=== PATIENT | male | born 1965 | race Caucasian/White ===

== ENCOUNTER 2016-10-25 12:32 | Inpatient (IN) | payer MEDICARE, BC ==
[2016-10-25] MEDS ORDERED: Albuterol/Ipratropium NEB.SOL* Albuterol 2.5 MG/Ipratropium 0.5 MG 3 ML ONE (12:38)
[2016-10-25] MEDS ORDERED: Albuterol 2.5 MG/3 ML NEB.SOL* (0.083%) ONE (12:39)
[2016-10-25] MEDS ORDERED: Albuterol 2.5 MG/3 ML NEB.SOL* (0.083%) INH ONE ×2 (12:40→12:53)
[2016-10-25] MEDS ORDERED: Albuterol/Ipratropium NEB.SOL* Albuterol 2.5 MG/Ipratropium 0.5 MG 3 ML INH ONE (12:40)
[2016-10-25] MEDS ORDERED: Dexamethasone IV* 4 MG/ML 1 ML (4 MG) IV SLOW PU ONE (12:42)
[2016-10-25] MEDS ORDERED: Dexamethasone IV* 4 MG/ML 1 ML (4 MG) ONE (12:44)
[2016-10-25] MEDS ORDERED: LORazepam INJ* 2 MG/ML 1 ML VIAL ONE (12:51)
[2016-10-25] MEDS ORDERED: LORazepam INJ* 2 MG/ML 1 ML VIAL IV PUSH ONE ×2 (12:59→13:14)
[2016-10-25 13:22] LABS: Hematocrit 55 % (42-52); Hemoglobin 18.4 g/dl (14.0-18.0); Mean Corpuscular HGB Conc 33 g/dl (31-36); Mean Corpuscular Hemoglobin 30 pg (27-31); Mean Corpuscular Volume 89 fL (80-94); Mean Platelet Volume 8 um3 (7.4-10.4); Red Cell Distribution Width 16 % (10.5-15); White Blood Count 11.1 10^3/ul (3.5-10.8)
[2016-10-25 13:23] LABS: Comments Flag Yes
[2016-10-25 13:24] LABS: Add Diff/Slide Review? Slide Review Added
--- NOTE | 2016-10-25 13:33 | RAD ---
Indication: Shortness of breath. Single frontal view of the chest performed at 1310 hours was reviewed. Comparison is made with previous exam dated April 27, 2016. No mediastinal shift is noted. Heart is of normal size and configuration. Lung baker appear clear. Poor inspiratory effort is noted. IMPRESSION: NO ACTIVE CARDIOPULMONARY DISEASE IS NOTED.
[2016-10-25 13:43] LABS: Albumin 4.3 g/dL (3.2-5.2); BUN/Creatinine Ratio 13.5 (8-20); Calcium 10.1 mg/dL (8.6-10.3); EGFR African American 67.9 (>60); EGFR Non-African American 52.8 (>60); Globulin 3.8 g/dL (2-4); Total Bilirubin 0.4 mg/dL (0.2-1.0); Total Protein 8.1 g/dL (6.4-8.9)
[2016-10-25 14:19] LABS: Potassium 4.5 mmol/L (3.5-5.0)
--- NOTE | 2016-10-25 14:28 | ED ---
[place], scribed for Сергей Sanchez MD on 10/25/16 at 1300 . Shortness of Breath - HPI Summary HPI Summary: Patient is a 50 y/o male who presents to the ED with SOB since 2 days, worse today. His sister, present at bedside, reports that sx began yesterday with fatigue and weakness and have been worsening in the last 24 hours. She denies fever, but reports a cough productive for yellow sputum. She reports pt was sent here from his doctors office. EMR reveals PMHx is significant for Common Variable Immune Deficiency Syndrome. - History of Current Complaint Chief Complaint: EDShortnessOfBreath Hx Obtained From: Patient, Family/Marine Consultant - Sister., Medical Records Onset/Duration: Gradual Onset, Lasting Hours, Still Present Timing: Constant Current Severity: Moderate Dyspnea At: Rest Aggrevating Factors: Nothing Alleviating Factors: Nothing Associated Signs & Symptoms: Cough (Productive) - Allergy/Home Medications Allergies/Adverse Reactions: Allergies Allergy/AdvReac Type Severity Reaction Status Date / Time Cefuroxime [From Ceftin] Allergy Intermediate Rash Verified 10/25/16 12:37 Nifedipine Allergy Intermediate Swelling Verified 10/25/16 12:37 Penicillins Allergy Intermediate Rash Verified 10/25/16 12:37 Prednisolone Allergy Intermediate Shakes Verified 10/25/16 12:37 Home Medications: Home Medications Albuterol Sulfate [Proair Respiclick] 2 puff INH Q4HR PRN 10/25/16 [History Confirmed 10/25/16] Albuterol/Ipratropium NEB.PAULO* [Duoneb (Albuterol 2.5 MG/Ipratropium 0.5 MG)] 1 neb INH Q2HR PRN 10/25/16 [History Confirmed 10/25/16] Azithromycin [Azithromycin 500 MG TAB] 500 mg PO SEE INSTRUCTIONS 10/25/16 [ History Confirmed 10/25/16] Fluticas/Salmet 230/21 HFA(NF) [Advair HFA 23O/21 (NF)] 2 puff INH BID 10/25/16 [History Confirmed 10/25/16] LevoCETirizine TAB (NF) [Xyzal TAB (NF)] 5 mg PO DAILY 10/25/16 [History Confirmed 10/25/16] Ondansetron ODT TAB* [Zofran 4 MG Odt TAB*] 4 mg PO Q4HR PRN 10/25/16 [History Confirmed 10/25/16] Potassium Chlor TAB* [Klor Con ER TAB*] 10 meq PO DAILY 10/25/16 [History Confirmed 10/25/16] Probiotic Product [Probiotic Daily] 1 cap PO DAILY 10/25/16 [History Confirmed 10/25/16] Tiotropium CAP.INH* [Spiriva CAP.INH*] 2 cap.inh INH DAILY 10/25/16 [History Confirmed 10/25/16] diPHENhydraMINE PO* [Benadryl PO 50 MG CAP*] 50 mg PO Q4HR PRN 10/25/16 [ History Confirmed 10/25/16] predniSONE TAB* [Deltasone TAB*] 10 mg PO DAILY 10/25/16 [History Confirmed ] PMH/Surg Hx/FS Hx/Imm Hx Endocrine/Hematology History: Reports: Hx Systemic Lupus Erythematosus, Other Endocrine/Hematological Disorders - IgG deficiency Denies: Hx Anticoagulant Therapy, Hx Blood Disorders, Hx Blood Transfusions, Hx Bone Marrow Disease, Hx Diabetes, Hx Sickle Cell Disease, Hx Thyroid Disease , Hx Anemia, Hx Unexplained Bleeding Cardiovascular History: Reports: Hx Hypotension, Hx Syncope, Other Cardiovascular Problems/Disorders - low blood pressures Denies: Hx Hypertension, Hx Pacemaker/ICD Respiratory History: Reports: Hx Asthma, Hx Chronic Bronchitis, Hx Chronic Obstructive Pulmonary Disease (COPD), Hx Pneumonia, Hx Sleep Apnea - CPAP at night Denies: Hx Cystic Fibrosis, Hx Lung Cancer, Hx Pleural Effusion, Hx Pulmonary Edema, Hx Pulmonary Embolism, Hx Seasonal Allergies, Other Respiratory Problems/Disorders GI History: Reports: Hx Gastroesophageal Reflux Disease, Hx Gastrointestinal Bleed Denies: Hx Cirrhosis, Hx Crohn's Disease, Hx Diverticulosis, Hx Hiatal Hernia , Hx Irritable Bowel, Hx Jaundice, Hx Obstructive Bowel, Hx Ileostomy, Hx Pyloric Stenosis, Hx Ulcer, Other GI Disorders History: Reports: Other Problems/Disorders - Difficulty passing urine for past 9 months Denies: Hx Renal Disease - Pt is followed by Dr. Zayas- FOR ENLARGED PROSTATE Musculoskeletal History: Reports: Hx Arthritis Denies: Hx Osteoporosis Sensory History: Denies: Hx Hearing Aid Neurological History: Reports: Hx Headaches - right side back of head/neck, Hx Migraine Denies: Hx Dementia, Hx Developmental Delay Psychiatric History: Denies: Hx Anxiety, Hx Attention Deficit Hyperactivity Disorder, Hx Eating Disorder, Hx Depression, Hx Panic Disorder, Hx Post Traumatic Stress Disorder, Hx Inpatient Treatment, Hx Community Mental Health Tx, Hx Schizophrenia, Hx Bipolar Disorder, Hx Suicide Attempt, Hx of Violent Episodes Against Others, Hx Substance Abuse, Other Psychiatric Issues/Disorders - Surgical History Surgery Procedure, Year, and Place: Double hernia surgery, bilateral leg vein stripping x 3. POWER PORT Hx Anesthesia Reactions: No Infectious Disease History: No Infectious Disease History: Reports: Hx of Known/Suspected MRSA Denies: Hx Clostridium Difficile, Hx Hepatitis, Hx Human Immunodeficiency Virus (HIV), Hx Shingles, Hx Tuberculosis, Hx Known/Suspected VRE, Hx Known/ Suspected VRSA, History Other Infectious Disease, Traveled Outside the [place] in Last 30 Days - Family History Known Family History: Positive: Cardiac Disease - CHF - mother. , Other - CVA. - Social History Alcohol Use: None Substance Use Type: Reports: None Smoking Status (MU): Never Smoked Tobacco Have You Smoked in the Last Year: No Review of Systems Positive: Fatigue. Negative: Fever Positive: Shortness Of Breath, Cough - Yellow sputum. Positive: Weakness All Other Systems Reviewed And Are Negative: Yes Physical Exam Triage Information Reviewed: Yes Vital Signs On Initial Exam: Initial Vitals Temp Pulse Resp BP Pulse Ox 96.4 F 122 44 149/118 98 10/25/16 12:37 10/25/16 12:37 10/25/16 12:37 10/25/16 12:37 10/25/16 12:37 Appearance: Positive: Ill-Appearing - in respiratory distress. Skin: Positive: Warm Head/Face: Positive: Normal Head/Face Inspection ENT: Positive: Normal ENT inspection Neck: Positive: Supple Respiratory/Lung Sounds: Positive: Wheezes - bilateral, Unable to speak in full sentences Cardiovascular: Positive: Tachycardia. Negative: Murmur Abdomen Description: Positive: Nontender Musculoskeletal: Positive: Normal, Strength/ROM Intact Neurological: Positive: Normal, Sensory/Motor Intact, Alert, Oriented to Person Place, Time, CN Intact II-III Psychiatric: Positive: Anxious Diagnostics - Vital Signs Vital Signs Temp Pulse Resp BP Pulse Ox 10/25/16 13:00 128/99 10/25/16 12:56 116 34 149/118 100 10/25/16 12:37 96.4 F 122 44 149/118 98 - Laboratory Lab Results: Lab Results 10/25/16 10/25/16 Range/Units 13:02 13:02 WBC 11.1 H (3.5-10.8) 10^3/ul RBC 6.20 H (4.0-5.4) 10^6/ul Hgb 18.4 H (14.0-18.0) g/dl Hct 55 H (42-52) % MCV 89 (80-94) fL MCH 30 (27-31) pg MCHC 33 (31-36) g/dl RDW 16 H (10.5-15) % Plt Count 233 (150-450) 10^3/ul MPV 8 (7.4-10.4) um3 Neut % (Auto) 65.3 (38-83) % Lymph % (Auto) 21.4 L (25-47) % [place] % (Auto) 12.2 H (1-9) % Eos % (Auto) 0.4 (0-6) % Baso % (Auto) 0.7 (0-2) % Absolute Neuts (auto) 7.3 (1.5-7.7) 10^3/ul Absolute Lymphs (auto) 2.4 (1.0-4.8) 10^3/ul Absolute Monos (auto) 1.4 H (0-0.8) 10^3/ul Absolute Eos (auto) 0 (0-0.6) 10^3/ul Absolute Basos (auto) 0.1 (0-0.2) 10^3/ul Absolute Nucleated RBC 0.01 10^3/ul Nucleated RBC % 0.1 Sodium 126 L (133-145) mmol/L Potassium Pending Chloride 95 L (101-111) mmol/L Carbon Dioxide 19 L (22-32) mmol/L Anion Gap Pending BUN 19 (6-24) mg/dL Creatinine 1.41 H (0.67-1.17) mg/dL Est GFR ( Amer) 67.9 (>60) Est GFR (Non-Af Amer) 52.8 (>60) BUN/Creatinine Ratio 13.5 (8-20) Glucose 110 H (70-100) mg/dL Calcium 10.1 (8.6-10.3) mg/dL Total Bilirubin 0.40 (0.2-1.0) mg/dL AST Pending ALT 28 (7-52) U/L Alkaline Phosphatase 52 (34-104) U/L Troponin I 0.00 (<0.04) ng/mL Total Protein 8.1 (6.4-8.9) g/dL Albumin 4.3 (3.2-5.2) g/dL Globulin 3.8 (2-4) g/dL Albumin/Globulin Ratio 1.1 (1-3) Result Diagrams: 10/25/16 13:02 10/25/16 13:02 Lab Statement: Any lab studies that have been ordered have been reviewed, and results considered in the medical decision making process. - Radiology CXR Radiology Interpretation Completed By: Radiologist - IMPRESSION: NO ACTIVE CARDIOPULMONARY DISEASE IS NOTED. - EKG 1238 EKG Interpretation: Sinus tachycardia @ 113 bpm. No STEMI. Course/Dx - Course Course Of Treatment: 50 y/o male presents with SOB since 2 days. Family member denies fever, but reports a cough productive for yellow sputum, fatigue, and weakness. He received Albuterol, Dexamethasone, and Lorazepam. CXR reveals, per radiology, no active cardiopulmonary disease is noted. EKG reveals sinus tachycardia @ 113 bpm and no STEMI. Discussed case with Dr. Taylor and pt will be admitted. - Diagnoses Provider Diagnoses: Status asthmaticus - Physician Notifications Discussed Care of Patient With: Dr. Taylor (hospitalist) @ [id number]. Will see pt in ED. - Critical Care Time Critical Care Time: 30-74 min - 45 minutes critical care time. Discharge - Discharge Plan Condition: Guarded Disposition: ADMITTED TO [facility] The documentation as recorded by the [place] accurately reflects the service I personally performed and the decisions made by Laura block Walter, MD.
[2016-10-25] MEDS ORDERED: diPHENhydraMINE PO* 50 MG PO PRN (14:29)
[2016-10-25] MEDS ORDERED: NS 0.9% 500 ML BAG* 500 ML IV SCH (15:00)
[2016-10-25] MEDS: Albuterol/Ipratropium NEB.SOL* Albuterol 2.5 MG/Ipratropium 0.5 MG 3 ML INH SCH ×2 (15:41→20:13)
[2016-10-25] MEDS: Levofloxacin 750 MG IVPREMIX(* 750 MG/150 ML BAG IVPB SCH (15:45)
[2016-10-25] MEDS: Ondansetron ODT TAB* 4 MG PO PRN (16:11)
[2016-10-25] MEDS: Benzonatate CAP* 100 MG PO PRN ×2 (16:11→22:04)
[2016-10-25] MEDS: Acetaminophen TAB* 325 MG PO PRN (16:42)
[2016-10-25] MEDS: LORazepam INJ* 2 MG/ML 1 ML VIAL IV PUSH PRN (17:50)
[2016-10-25] MEDS: Hydroxychloroquine TAB* 200 MG PO SCH (17:51)
[2016-10-25] MEDS: Clotrimazole TROCHE* 10 MG TROCHE PO SCH ×2 (17:51→22:50)
--- NOTE | 2016-10-25 18:15 | HP ---
HISTORY AND PHYSICAL: DATE OF ADMISSION: 10/25/16 PCP: Dr. Cisneros. CHIEF COMPLAINT: Shortness of breath. HISTORY OF PRESENT ILLNESS: Mr. Adam is a pleasant 50-year-old man with past medical history of severe asthma, on 3 L of oxygen around the clock; IgG deficiency; GERD; DANIKA, on CPAP; lupus; Raynaud's; CKD 3; reported history of DVT , not currently on anticoagulation, who presents to the hospital with progressive shortness of breath over the past few days. The patient states on Sunday, which is 3 days ago, he felt really well, although he felt that he exerted himself too much helping around the house with dinner. Following day, he felt fatigued and more short of breath than usual. Over the following days, this progressed. He became very wheezy, developed a cough that was productive of yellow sputum, also reported headaches, sinus congestion, sneezing, and sore throat. The patient reports that 2-1/2 weeks ago, he had cut back on his azithromycin to twice weekly at Dr. Cam's request; however, he recently went back up to 3 times a week. Over the past 2 days, he has been using his inhalers, nebulizers, and CPAP at home as directed; however, it did not help with the symptoms at all. The patient reports feeling some warmth at times at home; however, he has never had a temperature. He has had some nausea and diarrhea, reports some chest discomfort presently associated with this past few days that feels like a pressure, nonradiating. He denies any abdominal pain , constipation, hematuria, bright red blood per rectum, or dysuria. The patient states he did receive a flu and pneumonia vaccine this past year. The patient has been intubated twice for asthma exacerbations, both of them occurred within a few months 2 years ago. PAST MEDICAL HISTORY: Severe asthma, on chronic oxygen at 3 L; IgG deficiency, on monthly immunoglobulin injections; GERD; history of DVT; lupus; Raynaud's; CKD 3; DANIKA, on CPAP. PAST SURGICAL HISTORY: Hernia repair, vein stripping, port placement. HOME MEDICATIONS: 1. Xanax 0.5 mg by mouth 2 times daily as needed for anxiety. 2. DuoNeb 1 neb inhaler every 2 hours as needed for shortness of breath or wheezing. 3. Aspirin 81 mg by mouth daily. 4. Beclomethasone 2 sprays in both nares daily. 5. Tessalon 200 mg by mouth 3 times daily as needed for cough. 6. Pulmicort 2 mL inhaled 3 times daily. 7. Mycelex Jayme 10 mg p.o. 5 times daily. 8. Epinephrine 0.3 mg injection once as needed for anaphylactic reaction. 9. Florinef 0.1 mg by mouth daily. 10. Benadryl 50 mg by mouth every 4 hours as needed for itching. 11. Advair 500/50 one puff inhaled 2 times daily. 12. Advair 230/21 two puffs inhaled 3 times daily. 13. Plaquenil 200 mg by mouth 2 times daily. 14. Immunoglobulin 37.5 g infusion every 4 weeks. 15. Xopenex 1.25 mg inhaler every 4 hours as needed for shortness of breath or wheezing. 16. Xyzal 5 mg by mouth daily. 17. Singulair 10 mg by mouth daily. 18. Omeprazole 40 mg by mouth daily. 19. Zofran 4 mg by mouth every 4 hours as needed for nausea. 20. MiraLAX 17 g by mouth 2 times a day. 21. Potassium chloride 10 mEq by mouth daily. 22. Albuterol 2 puffs inhaled every 4 hours as needed for shortness of breath or wheezing. 23. Probiotic 1 capsule by mouth daily. 24. Ranitidine 300 mg by mouth at bedtime. 25. Sumatriptan 100 mg by mouth daily as needed for migraines. 26. Flomax 0.4 mg by mouth daily. 27. Spiriva 2 capsules inhaled daily. 28. Torsemide 10 mg Sunday, Sunday, Sunday; 20 mg Sunday, Sunday, , Sunday. 29. Prednisone 10 mg by mouth daily. 30. Azithromycin 500 mg by mouth 3 times weekly. ALLERGIES: CEFUROXIME, NIFEDIPINE, PENICILLIN, PREDNISOLONE. FAMILY HISTORY: Significant for mother with diabetes and stroke. Unknown paternal family history. REVIEW OF SYSTEMS: Twelve-point review of systems is negative except for that is noted in the HPI. PHYSICAL EXAMINATION GENERAL: The patient is a middle-aged, man, lying in bed, in moderate respiratory distress. VITAL SIGNS: On admission, temperature 96.4, heart rate of 122, respiratory rate of 44, O2 saturation 98% on 40 L on 100% oxygen Vapotherm, blood pressure 149/118. HEENT: Pupils equal, round, reactive to light and accommodation. Anicteric sclerae. Moist mucous membranes, some mild posterior oropharyngeal erythema. No cervical adenopathy. LUNGS: Tight, mild air movement, diffuse expiratory wheeze. No rales or rhonchi appreciated. CARDIOVASCULAR: Tachycardic. No murmurs, gallops, or rubs. ABDOMEN: Soft, nontender, nondistended. Bowel sounds positive. EXTREMITIES: No cyanosis, clubbing, or edema. NEURO: The patient is alert and oriented x3. No focal neurological deficits. SKIN: Warm, dry, and well perfused. DIAGNOSTIC STUDIES/LAB DATA: White blood cell count of 11.1, hematocrit of 55 , platelets of 233. Sodium of 126, potassium 4.5, chloride 95, carbon dioxide 19, BUN of 19, creatinine 1.41, glucose of 110, lactic acid of 3.2. LFTs are within normal limits. Troponin is 0.00. EKG personally reviewed shows sinus tachycardia. No ischemic changes. Chest x-ray personally reviewed, poor inspiratory effort, no clear consolidations noted. ASSESSMENT AND PLAN: Severe asthma exacerbation, acute on chronic hypoxic respiratory failure in a 50-year-old man with past medical history of asthma, IgG deficiency, gastroesophageal reflux disease, lupus, Raynaud's, chronic kidney disease 3, and obstructive sleep apnea, on CPAP. 1. Severe asthma exacerbation. The patient received nebs and Decadron in the ED. We will continue skfojc-rrr-hikor DuoNeb along with p.r.n. albuterol. We will switch to Solu-Medrol 60 mg IV q.8. Continue home Spiriva, Singulair, and allergy medications. With the patient's history of immunodeficiency, I will add on a procalcitonin and we will start him on Levaquin for now. We will give the patient 500 cc bolus, seems to be a bit dehydrated based on his labs. I will recheck a lactic acidosis. Hold his home torsemide for now. Continue his home Florinef, which he reports taking for hypotension. No evidence of adrenal crisis at the moment. Symptoms have improved since arriving to the hospital. Currently, weaning down on Vapotherm. We will continue to wean as able. 2. Chest discomfort. Maybe secondary to asthma exacerbation. Initial troponin is 0. We will continue to trend for now. EKG shows sinus tachycardia. No clear ischemic changes. We will monitor the patient on telemetry. 3. Chronic kidney disease. The patient's creatinine seems to be above baseline as noted above. We will give some IV fluids and hold his torsemide for the time being. 4. Lupus/Raynaud's. We will continue the patient's home Plaquenil. 5. IgG deficiency. Antibiotics as above. The patient received his human immunoglobulin on October 19. 6. Anxiety. Likely contributing to his shortness of breath as well, with good response to Ativan in the emergency department. We will continue that for now. Once he has continued improvement, we can switch him back to his home Xanax. 7. DVT prophylaxis. Heparin subcu. 8. Code status. The patient is a full code. TIME SPENT: Total time spent on this admission 45 minutes, with over the half of time spent [id number] with the patient in counseling and coordinating care. CC: Dr. Cisneros; Dr. Cam; Dr. Prem Vaz* [id number]/[facility] #: [id number] [facility] HOSPITALClaudia
[2016-10-25] MEDS: SUMAtriptan TAB* 100 MG PO PRN (19:11)
[2016-10-25] MEDS: Budesonide NEB* 0.5 MG/2 ML NEB.SOLN INH SCH (20:13)
[2016-10-25] MEDS: Polyethylene Glycol 3350* 17 GM PACKET PO SCH (21:20)
[2016-10-25] MEDS: Famotidine TAB* 20 MG PO SCH (22:04)
[2016-10-25] MEDS: Heparin VIAL(*) 5000 UNITS/ML VIAL (FIVE THOUSAND) SUBCUT SCH (22:04)
[2016-10-25] MEDS: methylPREDNISolone SOD SUCC* 125 MG 2 ML VIAL IV SCH (22:05)
[2016-10-25] MEDS: Fluticasone NASAL SPRAY 50MCG* 16 gm SPRAY BTL BOTH NARES SCH (23:55)
[2016-10-26] MEDS: Albuterol/Ipratropium NEB.SOL* Albuterol 2.5 MG/Ipratropium 0.5 MG 3 ML INH SCH ×4 (01:30→21:50)
[2016-10-26] MEDS: Heparin VIAL(*) 5000 UNITS/ML VIAL (FIVE THOUSAND) SUBCUT SCH ×3 (06:02→21:09)
[2016-10-26] MEDS: Clotrimazole TROCHE* 10 MG TROCHE PO SCH ×5 (06:02→21:09)
[2016-10-26] MEDS: methylPREDNISolone SOD SUCC* 125 MG 2 ML VIAL IV SCH ×3 (06:03→21:10)
[2016-10-26] MEDS: Tiotropium CAP.INH* CAP.INH/18 MCG INH SCH (07:52)
[2016-10-26] MEDS: Budesonide NEB* 0.5 MG/2 ML NEB.SOLN INH SCH ×2 (07:52→21:50)
[2016-10-26 08:05] LABS: BUN/Creatinine Ratio 13.7 (8-20); Calcium 9.5 mg/dL (8.6-10.3); EGFR African American 73.9 (>60); EGFR Non-African American 57.5 (>60); Potassium 4.6 mmol/L (3.5-5.0)
[2016-10-26] MEDS: Aspirin EC Low Dose* 81 MG TAB.EC PO SCH (08:06)
[2016-10-26] MEDS: Polyethylene Glycol 3350* 17 GM PACKET PO SCH ×2 (08:06→21:12)
[2016-10-26] MEDS: Omeprazole CAP* 20 MG PO SCH (08:06)
[2016-10-26] MEDS: Potassium Chlor TAB* 10 MEQ TAB.ER PO SCH (08:06)
[2016-10-26] MEDS: Hydroxychloroquine TAB* 200 MG PO SCH ×2 (08:06→16:25)
[2016-10-26] MEDS: Tamsulosin CAP* 0.4 MG PO SCH (08:06)
[2016-10-26] MEDS: Fludrocortisone Acetate TAB* 0.1 MG PO SCH (08:07)
[2016-10-26] MEDS: Acetaminophen TAB* 325 MG PO PRN ×3 (08:26→18:04)
[2016-10-26] MEDS: Benzonatate CAP* 100 MG PO PRN (08:26)
[2016-10-26] MEDS ORDERED: Spiriva Inhaler DEVICE* 1 EACH DEVICE INH ONE (09:00)
[2016-10-26] MEDS: Ondansetron ODT TAB* 4 MG PO PRN ×2 (11:06→16:25)
[2016-10-26] MEDS: Albuterol 2.5 MG/3 ML NEB.SOL* (0.083%) INH PRN (11:08)
[2016-10-26] MEDS: LORazepam INJ* 2 MG/ML 1 ML VIAL IV PUSH PRN (13:00)
[2016-10-26] MEDS ORDERED: Morphine INJ* 2 MG/ML 1 ML SYRINGE IV PRN (13:18)
--- NOTE | 2016-10-26 14:05 | PN ---
Subjective Date of Service: 10/26/16 Interval History: HOSPITALIST PROGRESS NOTE Patient seen and examined at bedside. He feels a little better today, but still dyspneic and with coughing paroxysms. Denies CP now, but had it overnight. Family History: Unchanged from Admission Social History: Unchanged from Admission Past Medical History: Unchanged from Admission Objective Active Medications: Acetaminophen (Tylenol Tab*) 650 mg PO Q4H PRN PRN Reason: PAIN Last Admin: 10/26/16 13:52 Dose: 650 mg Albuterol (Ventolin 2.5 Mg/3 Ml Neb.Ewa*) 2.5 mg INH Q2H PRN PRN Reason: sob/wheezing Last Admin: 10/26/16 11:08 Dose: 2.5 mg Albuterol/Ipratropium (Duoneb (Albuterol 2.5 Mg/Ipratropium 0.5 Mg)) 1 neb INH Q6H BEN Last Admin: 10/26/16 07:52 Dose: 1 neb Aspirin (Aspirin Ec Low Dose*) 81 mg PO DAILY [facility] Last Admin: 10/26/16 08:06 Dose: 81 mg Benzonatate (Tessalon Cap*) 200 mg PO TID PRN PRN Reason: COUGH Last Admin: 10/26/16 08:26 Dose: 200 mg Budesonide (Pulmicort Neb*) 0.5 mg INH BID [facility] Last Admin: 10/26/16 07:52 Dose: 0.5 mg Cetirizine HCl (Zyrtec*) 10 mg PO QPM BEN Clotrimazole (Mycelex Jayme*) 10 mg PO FIVE TIMES DAILY [facility] Last Admin: 10/26/16 13:47 Dose: 10 mg Diphenhydramine HCl (Benadryl Po*) 50 mg PO Q4H PRN PRN Reason: ITCHING Famotidine (Pepcid Tab*) 40 mg PO BEDTIME BEN PRN Reason: Protocol Last Admin: 10/25/16 22:04 Dose: 40 mg Fludrocortisone Acetate (Florinef Tab*) 0.1 mg PO DAILY [facility] Last Admin: 10/26/16 08:07 Dose: 0.1 mg Fluticasone Propionate (Flonase Nasal [place] 50mcg*) 2 spray BOTH NARES BEDTIME [facility] Last Admin: 10/25/16 23:55 Dose: 2 spray Heparin Sodium (Porcine) (Heparin Vial(*)) 5,000 units SUBCUT Q8HR [facility] Last Admin: 10/26/16 13:47 Dose: 5,000 units Hydroxychloroquine Sulfate (Plaquenil Tab*) 200 mg PO BID WITH MEALS [facility] Last Admin: 10/26/16 08:06 Dose: 200 mg Levofloxacin/Dextrose (Levaquin 750 Mg Ivpremix(*)) 750 mg in 150 mls @ 100 mls /hr IVPB Q24H [facility] Last Admin: 10/25/16 15:45 Dose: 100 mls/hr Lorazepam (Ativan Inj*) 0.5 mg IV PUSH Q4H PRN PRN Reason: ANXIETY Last Admin: 10/26/16 13:00 Dose: 0.5 mg Methylprednisolone Sodium Succinate (Solu-Medrol*) 60 mg IV Q8H [facility] Last Admin: 10/26/16 13:46 Dose: 60 mg Montelukast Sodium (Singulair Tab*) 10 mg PO BEDTIME [facility] Morphine Sulfate (Morphine Inj (Syringe)*) 2 mg IV Q4H PRN PRN Reason: PAIN Omeprazole (Prilosec Cap*) 40 mg PO DAILY@0730 [facility] Last Admin: 10/26/16 08:06 Dose: 40 mg Ondansetron HCl (Zofran Odt Tab*) 4 mg PO Q4H PRN PRN Reason: NAUSEA Last Admin: 10/26/16 11:06 Dose: 4 mg Polyethylene Glycol/Electrolytes (Miralax*) 17 gm PO BID [facility] Last Admin: 10/26/16 08:06 Dose: 17 gm Potassium Chloride (Klor Con Er Tab*) 10 meq PO DAILY WITH MEAL [facility] Last Admin: 10/26/16 08:06 Dose: 10 meq Sumatriptan Succinate (Imitrex Tab*) 100 mg PO DAILY PRN PRN Reason: MIGRAINE HEADACHE Last Admin: 10/25/16 19:11 Dose: 100 mg Tamsulosin HCl (Flomax Cap*) 0.4 mg PO DAILY [facility] Last Admin: 10/26/16 08:06 Dose: 0.4 mg Tiotropium [place] (Spiriva Cap.Inh*) 1 cap INH DAILY [facility] Last Admin: 10/26/16 07:52 Dose: 1 cap Vital Signs 10/26/16 10/26/16 12:00 13:00 Temperature 97.2 F Pulse Rate 92 111 Respiratory 16 36 Rate Blood Pressure 126/88 (mmHg) O2 Sat by Pulse 97 97 Oximetry Oxygen Devices in Use Now: High Flow Nasal Cannula - Salter cannula Appearance: Pleasant middle aged male lying in bed in NAD. Eyes: No Scleral Icterus Ears/Nose/Mouth/Throat: Mucous Membranes Moist Neck: Trachea Midline Respiratory: Symmetrical Chest Expansion and Respiratory Effort, - - BS+ bilaterally decreased with no added sounds Cardiovascular: NL Sounds; No Murmurs; No JVD, RRR Abdominal: NL Sounds; No Tenderness; No Distention Extremities: No Edema Neurological: Alert and Oriented x 3, NL Muscle Strength and Tone Lines/Tubes/Other Access: Clean, Dry and Intact Peripheral IV Nutrition: Taking PO's Result Diagrams: 10/25/16 13:02 10/26/16 06:12 Assess/Plan/Problems-Billing Assessment: Mr. Adam is a 50yo M with PMH of severe asthma on home O2, IgG deficiency, GERD, DVT, SLE, CKD, DANIKA on CPAP, who presented to ED with c/o cough and shortness of breath, found to have asthma exacerbation. - Patient Problems (1) Acute hypoxemic respiratory failure Comment: - Acute on chronic. - Continue supplemental O2. (2) Asthma exacerbation Comment: - Secondary to bronchitis. - Continue steroids, Levofloxacin and bronchodilators. - Continue supplemental O2 - titrated down from Vapotherm to Salter, but will continue to monitor in ICU. (3) Chest discomfort Comment: - Secondary to asthma exacerbation. - Serial troponins are negative. (4) CKD (chronic kidney disease) Comment: - Renal function close to baseline. (5) DVT prophylaxis Comment: - SQ heparin. (6) Full code status Status and Disposition: Inpatient.
[2016-10-26] MEDS: Levofloxacin 750 MG IVPREMIX(* 750 MG/150 ML BAG IVPB SCH (14:53)
[2016-10-26] MEDS: Cetirizine* 10 MG TAB PO SCH (18:04)
[2016-10-26] MEDS: Famotidine TAB* 20 MG PO SCH (21:09)
[2016-10-26] MEDS: Montelukast Sodium TAB* 10 MG PO SCH (21:09)
[2016-10-26] MEDS: Fluticasone NASAL SPRAY 50MCG* 16 gm SPRAY BTL BOTH NARES SCH (21:12)
[2016-10-27] MEDS: Albuterol/Ipratropium NEB.SOL* Albuterol 2.5 MG/Ipratropium 0.5 MG 3 ML INH SCH ×4 (03:07→20:51)
[2016-10-27] MEDS: Acetaminophen TAB* 325 MG PO PRN ×3 (04:05→16:56)
[2016-10-27] MEDS: Clotrimazole TROCHE* 10 MG TROCHE PO SCH ×5 (06:39→21:22)
[2016-10-27] MEDS: methylPREDNISolone SOD SUCC* 125 MG 2 ML VIAL IV SCH ×3 (06:39→21:22)
[2016-10-27] MEDS: Heparin VIAL(*) 5000 UNITS/ML VIAL (FIVE THOUSAND) SUBCUT SCH ×3 (06:40→21:22)
[2016-10-27 07:06] LABS: Hematocrit 53 % (42-52); Hemoglobin 17.5 g/dl (14.0-18.0); Mean Corpuscular HGB Conc 33 g/dl (31-36); Mean Corpuscular Hemoglobin 30 pg (27-31); Mean Corpuscular Volume 89 fL (80-94); Mean Platelet Volume 9 um3 (7.4-10.4); Red Blood Count 5.87 10^6/ul (4.0-5.4); Red Cell Distribution Width 16 % (10.5-15); White Blood Count 22.2 10^3/ul (3.5-10.8)
[2016-10-27 07:07] LABS: Add Diff/Slide Review? Slide Review Added; Comments Flag Yes
[2016-10-27 07:21] LABS: BUN/Creatinine Ratio 16.2 (8-20); Calcium 7.9 mg/dL (8.6-10.3); EGFR African American 89.5 (>60); EGFR Non-African American 69.6 (>60); Potassium 4.3 mmol/L (3.5-5.0)
[2016-10-27] MEDS: Budesonide NEB* 0.5 MG/2 ML NEB.SOLN INH SCH ×2 (07:45→20:51)
[2016-10-27] MEDS: Tiotropium CAP.INH* CAP.INH/18 MCG INH SCH (07:46)
[2016-10-27] MEDS: Polyethylene Glycol 3350* 17 GM PACKET PO SCH ×2 (08:18→21:22)
[2016-10-27] MEDS: Aspirin EC Low Dose* 81 MG TAB.EC PO SCH (08:19)
[2016-10-27] MEDS: Omeprazole CAP* 20 MG PO SCH (08:19)
[2016-10-27] MEDS: Tamsulosin CAP* 0.4 MG PO SCH (08:19)
[2016-10-27] MEDS: Fludrocortisone Acetate TAB* 0.1 MG PO SCH (08:19)
[2016-10-27] MEDS: Potassium Chlor TAB* 10 MEQ TAB.ER PO SCH (08:19)
[2016-10-27] MEDS: Hydroxychloroquine TAB* 200 MG PO SCH ×2 (08:20→16:56)
[2016-10-27] MEDS ORDERED: NS 0.9% 1000 ML* 1,000 ML IV ONE ×2 (08:37→14:58)
[2016-10-27] MEDS: NS 0.9% 1000 ML* 1,000 ML IV SCH ×2 (09:55→18:39)
[2016-10-27] MEDS: DOXYcycline IV* 100 MG in NS 0.9% 250 ML* 250 ML IVPB SCH ×2 (09:56→21:21)
--- NOTE | 2016-10-27 13:01 | PN ---
Subjective Date of Service: 10/27/16 Interval History: HOSPITALIST PROGRESS NOTE Patient seen and examined at bedside. He feels better this AM. Less dyspnea and cough, chest is not as tight as yesterday. Family History: Unchanged from Admission Social History: Unchanged from Admission Past Medical History: Unchanged from Admission Objective Active Medications: Acetaminophen (Tylenol Tab*) 650 mg PO Q4H PRN PRN Reason: PAIN Last Admin: 10/27/16 11:46 Dose: 650 mg Albuterol (Ventolin 2.5 Mg/3 Ml Neb.Ewa*) 2.5 mg INH Q2H PRN PRN Reason: sob/wheezing Last Admin: 10/26/16 11:08 Dose: 2.5 mg Albuterol/Ipratropium (Duoneb (Albuterol 2.5 Mg/Ipratropium 0.5 Mg)) 1 neb INH Q6H BEN Last Admin: 10/27/16 07:45 Dose: 1 neb Aspirin (Aspirin Ec Low Dose*) 81 mg PO DAILY [facility] Last Admin: 10/27/16 08:19 Dose: 81 mg Benzonatate (Tessalon Cap*) 200 mg PO TID PRN PRN Reason: COUGH Last Admin: 10/26/16 08:26 Dose: 200 mg Budesonide (Pulmicort Neb*) 0.5 mg INH BID [facility] Last Admin: 10/27/16 07:45 Dose: 0.5 mg Cetirizine HCl (Zyrtec*) 10 mg PO QPM [facility] Last Admin: 10/26/16 18:04 Dose: 10 mg Clotrimazole (Mycelex Jayme*) 10 mg PO FIVE TIMES DAILY [facility] Last Admin: 10/27/16 09:59 Dose: 10 mg Diphenhydramine HCl (Benadryl Po*) 50 mg PO Q4H PRN PRN Reason: ITCHING Famotidine (Pepcid Tab*) 40 mg PO BEDTIME BEN PRN Reason: Protocol Last Admin: 10/26/16 21:09 Dose: 40 mg Fludrocortisone Acetate (Florinef Tab*) 0.1 mg PO DAILY [facility] Last Admin: 10/27/16 08:19 Dose: 0.1 mg Fluticasone Propionate (Flonase Nasal [place] 50mcg*) 2 spray BOTH NARES BEDTIME [facility] Last Admin: 10/26/16 21:12 Dose: 2 spray Heparin Sodium (Porcine) (Heparin Vial(*)) 5,000 units SUBCUT Q8HR [facility] Last Admin: 10/27/16 06:40 Dose: 5,000 units Hydroxychloroquine Sulfate (Plaquenil Tab*) 200 mg PO BID WITH MEALS [facility] Last Admin: 10/27/16 08:20 Dose: 200 mg Levofloxacin/Dextrose (Levaquin 750 Mg Ivpremix(*)) 750 mg in 150 mls @ 100 mls /hr IVPB Q24H [facility] Last Admin: 10/26/16 14:53 Dose: 100 mls/hr Sodium Chloride (Ns 0.9% 1000 Ml*) 1,000 mls @ 125 mls/hr IV PER RATE [facility] Last Admin: 10/27/16 09:55 Dose: 125 mls/hr Doxycycline Hyclate 100 mg/ (Sodium Chloride) 250 mls @ 250 mls/hr IVPB Q12H [facility] Last Admin: 10/27/16 09:56 Dose: 250 mls/hr Lorazepam (Ativan Inj*) 0.5 mg IV PUSH Q4H PRN PRN Reason: ANXIETY Last Admin: 10/26/16 13:00 Dose: 0.5 mg Methylprednisolone Sodium Succinate (Solu-Medrol*) 60 mg IV Q8H [facility] Last Admin: 10/27/16 06:39 Dose: 60 mg Montelukast Sodium (Singulair Tab*) 10 mg PO BEDTIME [facility] Last Admin: 10/26/16 21:09 Dose: 10 mg Morphine Sulfate (Morphine Inj (Syringe)*) 2 mg IV Q4H PRN PRN Reason: PAIN Omeprazole (Prilosec Cap*) 40 mg PO DAILY@0730 [facility] Last Admin: 10/27/16 08:19 Dose: 40 mg Ondansetron HCl (Zofran Odt Tab*) 4 mg PO Q4H PRN PRN Reason: NAUSEA Last Admin: 10/26/16 16:25 Dose: 4 mg Polyethylene Glycol/Electrolytes (Miralax*) 17 gm PO BID [facility] Last Admin: 10/27/16 08:18 Dose: 17 gm Potassium Chloride (Klor Con Er Tab*) 10 meq PO DAILY WITH MEAL [facility] Last Admin: 10/27/16 08:19 Dose: 10 meq Sumatriptan Succinate (Imitrex Tab*) 100 mg PO DAILY PRN PRN Reason: MIGRAINE HEADACHE Last Admin: 10/25/16 19:11 Dose: 100 mg Tamsulosin HCl (Flomax Cap*) 0.4 mg PO DAILY [facility] Last Admin: 10/27/16 08:19 Dose: 0.4 mg Tiotropium [place] (Spiriva Cap.Inh*) 1 cap INH DAILY [facility] Last Admin: 10/27/16 07:46 Dose: 1 cap Vital Signs 10/27/16 10/27/16 10/27/16 07:00 07:51 08:00 Temperature 96.3 F Pulse Rate 104 100 100 Respiratory 22 16 21 Rate Blood Pressure 123/89 (mmHg) O2 Sat by Pulse 95 96 94 Oximetry Oxygen Devices in Use Now: Nasal Cannula - at 5 liters Appearance: Pleasant gentleman lying in bed in NAD. Eyes: No Scleral Icterus Ears/Nose/Mouth/Throat: Mucous Membranes Moist Neck: Trachea Midline Respiratory: Symmetrical Chest Expansion and Respiratory Effort, - - BS+ bilaterally decreased with scattered wheeze Cardiovascular: RRR - Normal S1 and s2 Abdominal: NL Sounds; No Tenderness; No Distention Extremities: No Edema Neurological: Alert and Oriented x 3, NL Muscle Strength and Tone Lines/Tubes/Other Access: Clean, Dry and Intact Peripheral IV Nutrition: Taking PO's Result Diagrams: 10/27/16 06:40 10/27/16 06:40 Assess/Plan/Problems-Billing Assessment: Mr. Adam is a 50yo M with PMH of severe asthma on home O2, IgG deficiency, GERD, DVT, SLE, CKD, DANIKA on CPAP, who presented to ED with c/o cough and shortness of breath, found to have asthma exacerbation. - Patient Problems (1) Sepsis Comment: - Patient meets sepsis criteria with leukocytosis and tachypnea. - Source is bronchitis. - Leukocytosis and LA are trending up - will add Doxycyline and request ID input. (2) Acute hypoxemic respiratory failure Comment: - Acute on chronic. - Continue supplemental O2, but now requiring only 5 liters NC. (3) Asthma exacerbation Comment: - Secondary to bronchitis. - Continue steroids, Levofloxacin and bronchodilators. - Add doxycyline. (4) Lactic acidosis Comment: - Increase IVF and monitor LA. (5) Chest discomfort Comment: - Secondary to asthma exacerbation. - Serial troponins are negative. (6) CKD (chronic kidney disease) Comment: - Renal function at baseline. (7) DVT prophylaxis Comment: - SQ heparin. (8) Full code status Status and Disposition: Inpatient.
[2016-10-27] MEDS: LORazepam INJ* 2 MG/ML 1 ML VIAL IV PUSH PRN (13:53)
[2016-10-27] MEDS: Levofloxacin 750 MG IVPREMIX(* 750 MG/150 ML BAG IVPB SCH (15:01)
[2016-10-27] MEDS: Cetirizine* 10 MG TAB PO SCH (16:56)
--- NOTE | 2016-10-27 21:08 | CONS ---
CONSULTATION REPORT: DATE OF CONSULT: 10/27/16 CONSULTING SERVICE: Infection Disease. REQUESTING PHYSICIAN: Dr. Pemberotn. REASON FOR CONSULT: Asthma exacerbation, leukocytosis, and lactic acidosis. IMPRESSION: 1. Recent viral upper respiratory illness, followed by asthma exacerbation and acute hypoxemic respiratory failure. 2. Leukocytosis, was 11 on admission, 22,000 today, not sure what it was yesterday, that is in the setting of being afebrile and high-dose corticosteroid therapy. I do not think there is evidence of an occult abscess that we should evaluate him for given the fact that he is otherwise improving. He does not have diarrhea to suggest Clostridium difficile infection. His blood cultures are negative today as is his influenza PCR. 3. Lactic acidosis, though he is normotensive, he is mentating, he is producing urine, his extremities are warm and well perfused, he does not have any abdominal pain or ischemic changes in his feet or arms. Looking back over his admission, he has not had a lactic acid level that normalizes at any point since July 2014. Question medication contribution to lactic acidosis. 4. Chronic kidney disease. 5. Lupus. 6. Severe asthma. 7. IgG deficiency, on replacement therapy. 8. ALLERGY TO PENICILLIN and CEFUROXIME. 9. Obstructive sleep apnea, on CPAP. RECOMMENDATION: Agree with doxycycline and Levaquin, though I do think this is most likely a viral infection; those agents will give excellent atypical coverage as well. HISTORY OF PRESENT ILLNESS: This is a 50-year-old man with asthma, chronic kidney disease, lupus, admitted with asthma exacerbation. He was well until 3 to 4 days before admission, started to develop sore throat, runny nose, some chills. No fevers at home. He does take 10 mg of prednisone a day, he then developed a cough, dyspnea, and worsening wheeze, so he came to the ER on the . He was started on methylprednisolone and Levaquin. His blood cultures were sent, were negative. Procalcitonin was sent, was negative. Influenza PCR negative. He has not been able to produce a sputum specimen, though he has had an ongoing cough; it is nonproductive. His cough, he thinks, is better than 2 days ago when he got here. His breathing is more comfortable. He is requiring less oxygen supplementation. He has had no abdominal pain or pain anywhere. PAST MEDICAL HISTORY: 1. Asthma. 2. Lupus. 3. Chronic kidney disease. 4. Immunoglobulin G deficiency. 5. Gastroesophageal reflux disease. 6. History of DVT. 7. Raynaud's. 8. Obstructive sleep apnea, on CPAP. 9. History of right chest port. MEDICATIONS: 1. Tylenol. 2. Albuterol. 3. Aspirin. 4. Benzonatate caplet. 5. Budesonide inhaler. 6. Cetirizine. 7. Clotrimazole isaias. 8. Doxycycline 100 mg every 12 hours. 9. Famotidine. 10. Fludrocortisone. 11. Fluticasone nasal spray. 12. Hydroxychloroquine. 13. Heparin subcutaneous injection. 14. Levaquin 750 mg every 24 hours. 15. Singulair. 16. Omeprazole. 17. Sumatriptan p.r.n. 18. Spiriva. 19. Tamsulosin. 20. Methylprednisolone 60 mg IV every 8 hours. ALLERGIES: CEFUROXIME, NIFEDIPINE, PENICILLIN, PREDNISOLONE. FAMILY HISTORY: No asthma or lung disease. SOCIAL HISTORY: Lives in [place]. He has no travel. No sick contacts. He does not leave the house much. No pets. REVIEW OF SYSTEMS: A full review of systems was negative except as noted above. PHYSICAL EXAM: Vital Signs: Temperature 36, heart rate 100, respiratory rate 20, blood pressure 123/89, O2 sat 95% on 5 L, which is down from 40 L on admission. In general, he is awake, non-distressed, non-diaphoretic. Neurologic: He is oriented x3. Follows all commands. Moves all his extremities. HEENT: There is no conjunctival hemorrhage. Oropharynx is without lesions. Neck is supple without nuchal rigidity. Lymph Nodes: There is no cervical, supraclavicular, inguinal, axillary, or epitrochlear lymphadenopathy. Heart is regular and tachycardic without murmurs. Lungs have bilateral expiratory wheezes with prolonged expiratory phase. There are no rales or rhonchi. Abdomen: Soft, nontender, and nondistended. There are bowel sounds present. Skin: There is no rash or splinter hemorrhages. Musculoskeletal: There is no spine tenderness to palpation or joint synovitis. The feet and hands are warm and there is brisk capillary refill. LABORATORY DATA: Creatinine 1.1, down from 1.4 on admission; BUN is 18. Lactate 4, from 3. White blood cell count 22, hemoglobin 17, platelets 209. Influenza PCR negative. Please see impressions and recommendations as outlined above. Thanks for asking me to see Mr. Adam in consultation. [id number]/[facility] #: [id number] MTDD
[2016-10-27] MEDS: Montelukast Sodium TAB* 10 MG PO SCH (21:21)
[2016-10-27] MEDS: Famotidine TAB* 20 MG PO SCH (21:21)
[2016-10-27] MEDS: Fluticasone NASAL SPRAY 50MCG* 16 gm SPRAY BTL BOTH NARES SCH (21:22)
[2016-10-28] MEDS: Albuterol/Ipratropium NEB.SOL* Albuterol 2.5 MG/Ipratropium 0.5 MG 3 ML INH SCH ×5 (03:22→21:31)
[2016-10-28] MEDS: NS 0.9% 1000 ML* 1,000 ML IV SCH (03:40)
[2016-10-28] MEDS: Acetaminophen TAB* 325 MG PO PRN ×3 (03:42→16:13)
[2016-10-28] MEDS: Heparin VIAL(*) 5000 UNITS/ML VIAL (FIVE THOUSAND) SUBCUT SCH ×3 (06:32→21:40)
[2016-10-28] MEDS: methylPREDNISolone SOD SUCC* 125 MG 2 ML VIAL IV SCH ×3 (06:32→21:40)
[2016-10-28] MEDS: Clotrimazole TROCHE* 10 MG TROCHE PO SCH ×5 (06:33→21:40)
[2016-10-28 06:56] LABS: Hematocrit 47 % (42-52); Hemoglobin 15.8 g/dl (14.0-18.0); Mean Corpuscular HGB Conc 33 g/dl (31-36); Mean Corpuscular Hemoglobin 30 pg (27-31); Mean Corpuscular Volume 90 fL (80-94); Mean Platelet Volume 8 um3 (7.4-10.4); Red Blood Count 5.23 10^6/ul (4.0-5.4); Red Cell Distribution Width 16 % (10.5-15); White Blood Count 20.1 10^3/ul (3.5-10.8)
[2016-10-28 06:58] LABS: Add Diff/Slide Review? Slide Review Added; Comments Flag Yes
[2016-10-28 07:07] LABS: BUN/Creatinine Ratio 15.4 (8-20); Calcium 8.9 mg/dL (8.6-10.3); EGFR African American 79.5 (>60); EGFR Non-African American 61.8 (>60); Potassium 4.7 mmol/L (3.5-5.0)
[2016-10-28] MEDS: Tiotropium CAP.INH* CAP.INH/18 MCG INH SCH (07:53)
[2016-10-28] MEDS: Budesonide NEB* 0.5 MG/2 ML NEB.SOLN INH SCH ×2 (07:53→21:14)
[2016-10-28] MEDS: Omeprazole CAP* 20 MG PO SCH (09:06)
[2016-10-28] MEDS: DOXYcycline IV* 100 MG in NS 0.9% 250 ML* 250 ML IVPB SCH ×2 (09:07→21:40)
[2016-10-28] MEDS: Hydroxychloroquine TAB* 200 MG PO SCH ×2 (09:43→16:13)
[2016-10-28] MEDS: Polyethylene Glycol 3350* 17 GM PACKET PO SCH ×2 (09:43→21:40)
[2016-10-28] MEDS: Potassium Chlor TAB* 10 MEQ TAB.ER PO SCH (09:43)
[2016-10-28] MEDS: Aspirin EC Low Dose* 81 MG TAB.EC PO SCH (09:44)
[2016-10-28] MEDS: Fludrocortisone Acetate TAB* 0.1 MG PO SCH (09:44)
[2016-10-28] MEDS: Tamsulosin CAP* 0.4 MG PO SCH (09:44)
--- NOTE | 2016-10-28 14:08 | PN ---
Subjective Date of Service: 10/28/16 Interval History: HOSPITALIST PROGRESS NOTE Patient seen and examined at bedside. He's in good spirits today, had a better night. Down to 3 liters of O2 and this is his baseline at home. Still has paroxysms of cough, but less frequently. Family History: Unchanged from Admission Social History: Unchanged from Admission Past Medical History: Unchanged from Admission Objective Active Medications: Acetaminophen (Tylenol Tab*) 650 mg PO Q4H PRN PRN Reason: PAIN Last Admin: 10/28/16 11:44 Dose: 650 mg Albuterol (Ventolin 2.5 Mg/3 Ml Neb.Ewa*) 2.5 mg INH Q2H PRN PRN Reason: sob/wheezing Last Admin: 10/26/16 11:08 Dose: 2.5 mg Albuterol/Ipratropium (Duoneb (Albuterol 2.5 Mg/Ipratropium 0.5 Mg)) 1 neb INH Q6H BEN Last Admin: 10/28/16 07:53 Dose: 1 neb Aspirin (Aspirin Ec Low Dose*) 81 mg PO DAILY [facility] Last Admin: 10/28/16 09:44 Dose: 81 mg Benzonatate (Tessalon Cap*) 200 mg PO TID PRN PRN Reason: COUGH Last Admin: 10/26/16 08:26 Dose: 200 mg Budesonide (Pulmicort Neb*) 0.5 mg INH BID [facility] Last Admin: 10/28/16 07:53 Dose: 0.5 mg Cetirizine HCl (Zyrtec*) 10 mg PO QPM [facility] Last Admin: 10/27/16 16:56 Dose: 10 mg Clotrimazole (Mycelex Jayme*) 10 mg PO FIVE TIMES DAILY [facility] Last Admin: 10/28/16 09:43 Dose: 10 mg Diphenhydramine HCl (Benadryl Po*) 50 mg PO Q4H PRN PRN Reason: ITCHING Famotidine (Pepcid Tab*) 40 mg PO BEDTIME BEN PRN Reason: Protocol Last Admin: 10/27/16 21:21 Dose: 40 mg Fludrocortisone Acetate (Florinef Tab*) 0.1 mg PO DAILY [facility] Last Admin: 10/28/16 09:44 Dose: 0.1 mg Fluticasone Propionate (Flonase Nasal [place] 50mcg*) 2 spray BOTH NARES BEDTIME [facility] Last Admin: 10/27/16 21:22 Dose: 2 spray Heparin Sodium (Porcine) (Heparin Vial(*)) 5,000 units SUBCUT Q8HR [facility] Last Admin: 10/28/16 06:32 Dose: 5,000 units Hydroxychloroquine Sulfate (Plaquenil Tab*) 200 mg PO BID WITH MEALS [facility] Last Admin: 10/28/16 09:43 Dose: 200 mg Levofloxacin/Dextrose (Levaquin 750 Mg Ivpremix(*)) 750 mg in 150 mls @ 100 mls /hr IVPB Q24H [facility] Last Admin: 10/27/16 15:01 Dose: 100 mls/hr Doxycycline Hyclate 100 mg/ (Sodium Chloride) 250 mls @ 250 mls/hr IVPB Q12H [facility] Last Admin: 10/28/16 09:07 Dose: 250 mls/hr Lorazepam (Ativan Inj*) 0.5 mg IV PUSH Q4H PRN PRN Reason: ANXIETY Last Admin: 10/27/16 13:53 Dose: 0.5 mg Methylprednisolone Sodium Succinate (Solu-Medrol*) 60 mg IV Q8H [facility] Last Admin: 10/28/16 06:32 Dose: 60 mg Montelukast Sodium (Singulair Tab*) 10 mg PO BEDTIME [facility] Last Admin: 10/27/16 21:21 Dose: 10 mg Morphine Sulfate (Morphine Inj (Syringe)*) 2 mg IV Q4H PRN PRN Reason: PAIN Omeprazole (Prilosec Cap*) 40 mg PO DAILY@0730 [facility] Last Admin: 10/28/16 09:06 Dose: 40 mg Ondansetron HCl (Zofran Odt Tab*) 4 mg PO Q4H PRN PRN Reason: NAUSEA Last Admin: 10/26/16 16:25 Dose: 4 mg Polyethylene Glycol/Electrolytes (Miralax*) 17 gm PO BID [facility] Last Admin: 10/28/16 09:43 Dose: 17 gm Potassium Chloride (Klor Con Er Tab*) 10 meq PO DAILY WITH MEAL [facility] Last Admin: 10/28/16 09:43 Dose: 10 meq Sumatriptan Succinate (Imitrex Tab*) 100 mg PO DAILY PRN PRN Reason: MIGRAINE HEADACHE Last Admin: 10/25/16 19:11 Dose: 100 mg Tamsulosin HCl (Flomax Cap*) 0.4 mg PO DAILY [facility] Last Admin: 10/28/16 09:44 Dose: 0.4 mg Tiotropium [place] (Spiriva Cap.Inh*) 1 cap INH DAILY [facility] Last Admin: 10/28/16 07:53 Dose: 1 cap Vital Signs 10/28/16 10/28/16 10/28/16 07:44 07:55 08:00 Temperature 97.3 F Pulse Rate 90 93 Respiratory 18 18 Rate Blood Pressure (mmHg) O2 Sat by Pulse 95 97 Oximetry 10/28/16 10/28/16 10/28/16 08:03 09:00 10:00 Temperature Pulse Rate 92 101 87 Respiratory 22 17 17 Rate Blood Pressure 95/76 (mmHg) O2 Sat by Pulse 97 94 98 Oximetry Oxygen Devices in Use Now: Nasal Cannula - at 3 liters Appearance: Pleasant middle aged male lying in bed in NAD. Eyes: No Scleral Icterus Ears/Nose/Mouth/Throat: Mucous Membranes Moist Neck: Trachea Midline Respiratory: Symmetrical Chest Expansion and Respiratory Effort, - - BS+ bilaterally decreased with no added sounds Cardiovascular: RRR - Normal S1 and S2 Abdominal: NL Sounds; No Tenderness; No Distention Extremities: No Edema Neurological: Alert and Oriented x 3, NL Muscle Strength and Tone Lines/Tubes/Other Access: Clean, Dry and Intact Peripheral IV Nutrition: Taking PO's Result Diagrams: 10/28/16 06:39 10/28/16 06:39 Assess/Plan/Problems-Billing Assessment: Mr. Adam is a 50yo M with PMH of severe asthma on home O2, IgG deficiency, GERD, DVT, SLE, CKD, DANIKA on CPAP, who presented to ED with c/o cough and shortness of breath, found to have asthma exacerbation. - Patient Problems (1) Sepsis Comment: - Patient meets sepsis criteria with leukocytosis and tachypnea. - Source is bronchitis. (2) Acute hypoxemic respiratory failure Comment: - Acute on chronic. - Continue supplemental O2, but now requiring only 3 liters NC. - Will transfer to Telemetry floor. (3) Asthma exacerbation Comment: - Secondary to bronchitis. - Continue steroids, Levofloxacin, doxycycline, and bronchodilators. (4) Lactic acidosis Comment: - Trending down. Patient had persistent lactic acidosis on prior admissions. (5) Chest discomfort Comment: - Secondary to asthma exacerbation. - Serial troponins are negative. (6) CKD (chronic kidney disease) Comment: - Renal function at baseline. (7) DVT prophylaxis Comment: - SQ heparin. (8) Full code status Status and Disposition: Inpatient.
[2016-10-28] MEDS: Levofloxacin 750 MG IVPREMIX(* 750 MG/150 ML BAG IVPB SCH (14:43)
[2016-10-28] MEDS: Cetirizine* 10 MG TAB PO SCH (17:33)
[2016-10-28] MEDS: Albuterol 2.5 MG/3 ML NEB.SOL* (0.083%) INH PRN (21:14)
[2016-10-28] MEDS: Fluticasone NASAL SPRAY 50MCG* 16 gm SPRAY BTL BOTH NARES SCH (21:40)
[2016-10-28] MEDS: Montelukast Sodium TAB* 10 MG PO SCH (21:40)
[2016-10-28] MEDS: Famotidine TAB* 20 MG PO SCH (21:40)
[2016-10-29] MEDS: Albuterol/Ipratropium NEB.SOL* Albuterol 2.5 MG/Ipratropium 0.5 MG 3 ML INH SCH ×4 (02:31→20:13)
[2016-10-29] MEDS: Clotrimazole TROCHE* 10 MG TROCHE PO SCH ×5 (05:33→21:08)
[2016-10-29] MEDS: Acetaminophen TAB* 325 MG PO PRN ×2 (05:33→12:36)
[2016-10-29] MEDS: Heparin VIAL(*) 5000 UNITS/ML VIAL (FIVE THOUSAND) SUBCUT SCH ×3 (05:35→20:56)
[2016-10-29] MEDS: methylPREDNISolone SOD SUCC* 125 MG 2 ML VIAL IV SCH ×3 (05:35→20:56)
[2016-10-29 05:57] LABS: Hematocrit 47 % (42-52); Hemoglobin 15.6 g/dl (14.0-18.0); Mean Corpuscular HGB Conc 33 g/dl (31-36); Mean Corpuscular Hemoglobin 30 pg (27-31); Mean Corpuscular Volume 91 fL (80-94); Mean Platelet Volume 8 um3 (7.4-10.4); Red Blood Count 5.21 10^6/ul (4.0-5.4); Red Cell Distribution Width 16 % (10.5-15); White Blood Count 15.2 10^3/ul (3.5-10.8)
[2016-10-29 05:59] LABS: Add Diff/Slide Review? Slide Review Added; Comments Flag Yes
[2016-10-29 06:17] LABS: BUN/Creatinine Ratio 15.3 (8-20); Calcium 9.2 mg/dL (8.6-10.3); EGFR African American 83.4 (>60); EGFR Non-African American 64.8 (>60)
[2016-10-29 06:19] LABS: Potassium 4.7 mmol/L (3.5-5.0)
[2016-10-29] MEDS: Budesonide NEB* 0.5 MG/2 ML NEB.SOLN INH SCH ×2 (08:13→20:13)
[2016-10-29] MEDS: Tiotropium CAP.INH* CAP.INH/18 MCG INH SCH (08:14)
[2016-10-29] MEDS: Omeprazole CAP* 20 MG PO SCH (08:16)
[2016-10-29] MEDS: Polyethylene Glycol 3350* 17 GM PACKET PO SCH ×2 (08:53→21:00)
[2016-10-29] MEDS: DOXYcycline IV* 100 MG in NS 0.9% 250 ML* 250 ML IVPB SCH ×2 (08:54→21:03)
[2016-10-29] MEDS: Aspirin EC Low Dose* 81 MG TAB.EC PO SCH (08:54)
[2016-10-29] MEDS: Fludrocortisone Acetate TAB* 0.1 MG PO SCH (08:54)
[2016-10-29] MEDS: Tamsulosin CAP* 0.4 MG PO SCH (08:54)
[2016-10-29] MEDS: Hydroxychloroquine TAB* 200 MG PO SCH ×2 (08:54→19:16)
[2016-10-29] MEDS: Potassium Chlor TAB* 10 MEQ TAB.ER PO SCH (08:54)
[2016-10-29] MEDS: Albuterol 2.5 MG/3 ML NEB.SOL* (0.083%) INH PRN ×2 (12:41→17:36)
--- NOTE | 2016-10-29 13:41 | PN ---
Subjective Date of Service: 10/29/16 Interval History: HOSPITALIST PROGRESS NOTE Patient seen and examined at bedside. He feels better today. Improving little by little everyday, still with frequent coughing paroxysms, but he has them at baseline. Family History: Unchanged from Admission Social History: Unchanged from Admission Past Medical History: Unchanged from Admission Objective Active Medications: Acetaminophen (Tylenol Tab*) 650 mg PO Q4H PRN PRN Reason: PAIN Last Admin: 10/29/16 12:36 Dose: 650 mg Albuterol (Ventolin 2.5 Mg/3 Ml Neb.Ewa*) 2.5 mg INH Q2H PRN PRN Reason: sob/wheezing Last Admin: 10/29/16 12:41 Dose: 2.5 mg Albuterol/Ipratropium (Duoneb (Albuterol 2.5 Mg/Ipratropium 0.5 Mg)) 1 neb INH Q6H BEN Last Admin: 10/29/16 08:13 Dose: 1 neb Aspirin (Aspirin Ec Low Dose*) 81 mg PO DAILY [facility] Last Admin: 10/29/16 08:54 Dose: 81 mg Benzonatate (Tessalon Cap*) 200 mg PO TID PRN PRN Reason: COUGH Last Admin: 10/26/16 08:26 Dose: 200 mg Budesonide (Pulmicort Neb*) 0.5 mg INH BID [facility] Last Admin: 10/29/16 08:13 Dose: 0.5 mg Cetirizine HCl (Zyrtec*) 10 mg PO QPM [facility] Last Admin: 10/28/16 17:33 Dose: 10 mg Clotrimazole (Mycelex Jayme*) 10 mg PO FIVE TIMES DAILY [facility] Last Admin: 10/29/16 13:01 Dose: 10 mg Diphenhydramine HCl (Benadryl Po*) 50 mg PO Q4H PRN PRN Reason: ITCHING Famotidine (Pepcid Tab*) 40 mg PO BEDTIME BEN PRN Reason: Protocol Last Admin: 10/28/16 21:40 Dose: 40 mg Fludrocortisone Acetate (Florinef Tab*) 0.1 mg PO DAILY [facility] Last Admin: 10/29/16 08:54 Dose: 0.1 mg Fluticasone Propionate (Flonase Nasal [place] 50mcg*) 2 spray BOTH NARES BEDTIME [facility] Last Admin: 10/28/16 21:40 Dose: 2 spray Heparin Sodium (Porcine) (Heparin Vial(*)) 5,000 units SUBCUT Q8HR [facility] Last Admin: 10/29/16 13:01 Dose: 5,000 units Hydroxychloroquine Sulfate (Plaquenil Tab*) 200 mg PO BID WITH MEALS [facility] Last Admin: 10/29/16 08:54 Dose: 200 mg Levofloxacin/Dextrose (Levaquin 750 Mg Ivpremix(*)) 750 mg in 150 mls @ 100 mls /hr IVPB Q24H [facility] Last Admin: 10/28/16 14:43 Dose: 100 mls/hr Doxycycline Hyclate 100 mg/ (Sodium Chloride) 250 mls @ 250 mls/hr IVPB Q12H [facility] Last Admin: 10/29/16 08:54 Dose: 250 mls/hr Lorazepam (Ativan Inj*) 0.5 mg IV PUSH Q4H PRN PRN Reason: ANXIETY Last Admin: 10/27/16 13:53 Dose: 0.5 mg Methylprednisolone Sodium Succinate (Solu-Medrol*) 60 mg IV Q8H [facility] Last Admin: 10/29/16 13:01 Dose: 60 mg Montelukast Sodium (Singulair Tab*) 10 mg PO BEDTIME [facility] Last Admin: 10/28/16 21:40 Dose: 10 mg Morphine Sulfate (Morphine Inj (Syringe)*) 2 mg IV Q4H PRN PRN Reason: PAIN Omeprazole (Prilosec Cap*) 40 mg PO DAILY@0730 [facility] Last Admin: 10/29/16 08:16 Dose: 40 mg Ondansetron HCl (Zofran Odt Tab*) 4 mg PO Q4H PRN PRN Reason: NAUSEA Last Admin: 10/26/16 16:25 Dose: 4 mg Polyethylene Glycol/Electrolytes (Miralax*) 17 gm PO BID [facility] Last Admin: 10/29/16 08:53 Dose: 17 gm Potassium Chloride (Klor Con Er Tab*) 10 meq PO DAILY WITH MEAL [facility] Last Admin: 10/29/16 08:54 Dose: 10 meq Sumatriptan Succinate (Imitrex Tab*) 100 mg PO DAILY PRN PRN Reason: MIGRAINE HEADACHE Last Admin: 10/25/16 19:11 Dose: 100 mg Tamsulosin HCl (Flomax Cap*) 0.4 mg PO DAILY [facility] Last Admin: 10/29/16 08:54 Dose: 0.4 mg Tiotropium [place] (Spiriva Cap.Inh*) 1 cap INH DAILY [facility] Last Admin: 10/29/16 08:14 Dose: 1 cap Vital Signs 10/29/16 10/29/16 10/29/16 07:54 08:00 08:17 Temperature 97.2 F Pulse Rate 95 Respiratory 18 20 Rate Blood Pressure 122/87 (mmHg) O2 Sat by Pulse 95 96 Oximetry 10/29/16 10/29/16 10/29/16 09:00 11:25 12:42 Temperature 97.4 F Pulse Rate 99 98 Respiratory 17 22 Rate Blood Pressure (mmHg) O2 Sat by Pulse 95 97 Oximetry Oxygen Devices in Use Now: Nasal Cannula - at 3 liters Appearance: Pleasant gentleman sitting up in a chair in NAD. Eyes: No Scleral Icterus Ears/Nose/Mouth/Throat: Mucous Membranes Moist Neck: Trachea Midline Respiratory: Symmetrical Chest Expansion and Respiratory Effort, - - BS+ bilaterally with scattered wheezes Cardiovascular: NL Sounds; No Murmurs; No JVD, RRR Abdominal: NL Sounds; No Tenderness; No Distention Extremities: No Edema Neurological: Alert and Oriented x 3, NL Muscle Strength and Tone Lines/Tubes/Other Access: Clean, Dry and Intact Peripheral IV Nutrition: Taking PO's Result Diagrams: 10/29/16 05:45 10/29/16 05:45 Assess/Plan/Problems-Billing Assessment: Mr. Adam is a 50yo M with PMH of severe asthma on home O2, IgG deficiency, GERD, DVT, SLE, CKD, DANIKA on CPAP, who presented to ED with c/o cough and shortness of breath, found to have asthma exacerbation. - Patient Problems (1) Sepsis Comment: - Patient meets sepsis criteria with leukocytosis and tachypnea. - Source is bronchitis. (2) Acute hypoxemic respiratory failure Comment: - Acute on chronic. - Continue supplemental O2, but now requiring only 3 liters NC. - Will transfer to Medical floor. (3) Asthma exacerbation Comment: - Secondary to bronchitis. - Continue steroids, Levofloxacin, doxycycline, and bronchodilators. (4) Lactic acidosis Comment: - Trending down. Patient had persistent lactic acidosis on prior admissions. (5) Chest discomfort Comment: - Secondary to asthma exacerbation. - Serial troponins are negative. (6) CKD (chronic kidney disease) Comment: - Renal function at baseline. (7) DVT prophylaxis Comment: - SQ heparin. (8) Full code status Status and Disposition: Inpatient. Patient is now MOF in ICU.
[2016-10-29] MEDS: Levofloxacin 750 MG IVPREMIX(* 750 MG/150 ML BAG IVPB SCH (15:40)
[2016-10-29] MEDS: Cetirizine* 10 MG TAB PO SCH (19:17)
[2016-10-29] MEDS: Montelukast Sodium TAB* 10 MG PO SCH (20:54)
[2016-10-29] MEDS: Famotidine TAB* 20 MG PO SCH (20:54)
[2016-10-29] MEDS: Fluticasone NASAL SPRAY 50MCG* 16 gm SPRAY BTL BOTH NARES SCH (20:59)
[2016-10-30] MEDS: Albuterol/Ipratropium NEB.SOL* Albuterol 2.5 MG/Ipratropium 0.5 MG 3 ML INH SCH ×4 (02:46→20:39)
[2016-10-30] MEDS: Heparin VIAL(*) 5000 UNITS/ML VIAL (FIVE THOUSAND) SUBCUT SCH ×3 (06:09→20:34)
[2016-10-30] MEDS: Clotrimazole TROCHE* 10 MG TROCHE PO SCH ×5 (06:10→20:31)
[2016-10-30] MEDS: Albuterol 2.5 MG/3 ML NEB.SOL* (0.083%) INH PRN (07:14)
[2016-10-30] MEDS: Tiotropium CAP.INH* CAP.INH/18 MCG INH SCH (07:14)
[2016-10-30] MEDS: Omeprazole CAP* 20 MG PO SCH (08:05)
[2016-10-30] MEDS: Aspirin EC Low Dose* 81 MG TAB.EC PO SCH (08:26)
[2016-10-30] MEDS: Hydroxychloroquine TAB* 200 MG PO SCH ×2 (08:26→17:43)
[2016-10-30] MEDS: Potassium Chlor TAB* 10 MEQ TAB.ER PO SCH (08:26)
[2016-10-30] MEDS: Fludrocortisone Acetate TAB* 0.1 MG PO SCH (08:26)
[2016-10-30] MEDS: Tamsulosin CAP* 0.4 MG PO SCH (08:26)
[2016-10-30] MEDS: methylPREDNISolone SOD SUCC* 125 MG 2 ML VIAL IV SCH ×2 (08:28→20:27)
[2016-10-30] MEDS: DOXYcycline IV* 100 MG in NS 0.9% 250 ML* 250 ML IVPB SCH ×2 (08:29→20:32)
[2016-10-30] MEDS: Polyethylene Glycol 3350* 17 GM PACKET PO SCH ×2 (08:49→20:16)
[2016-10-30] MEDS: Budesonide NEB* 0.5 MG/2 ML NEB.SOLN INH SCH ×2 (09:41→20:39)
[2016-10-30] MEDS: Levofloxacin 750 MG IVPREMIX(* 750 MG/150 ML BAG IVPB SCH (15:09)
[2016-10-30] MEDS: SUMAtriptan TAB* 100 MG PO PRN (15:09)
[2016-10-30] MEDS: Acetaminophen TAB* 325 MG PO PRN ×2 (15:17→20:26)
--- NOTE | 2016-10-30 16:04 | PN ---
Subjective Date of Service: 10/30/16 Interval History: HOSPITALIST PROGRESS NOTE Patient seen and examined at bedside. He feels better today, 80% close to his baseline. Family History: Unchanged from Admission Social History: Unchanged from Admission Past Medical History: Unchanged from Admission Objective Active Medications: Acetaminophen (Tylenol Tab*) 650 mg PO Q4H PRN PRN Reason: PAIN Last Admin: 10/30/16 15:17 Dose: 650 mg Albuterol (Ventolin 2.5 Mg/3 Ml Neb.Ewa*) 2.5 mg INH Q2H PRN PRN Reason: sob/wheezing Last Admin: 10/30/16 07:14 Dose: 2.5 mg Albuterol/Ipratropium (Duoneb (Albuterol 2.5 Mg/Ipratropium 0.5 Mg)) 1 neb INH Q6H [facility]EN Last Admin: 10/30/16 14:37 Dose: 1 neb Aspirin (Aspirin Ec Low Dose*) 81 mg PO DAILY [facility] Last Admin: 10/30/16 08:26 Dose: 81 mg Benzonatate (Tessalon Cap*) 200 mg PO TID PRN PRN Reason: COUGH Last Admin: 10/26/16 08:26 Dose: 200 mg Budesonide (Pulmicort Neb*) 0.5 mg INH BID [facility]EN Last Admin: 10/30/16 09:41 Dose: 0.5 mg Cetirizine HCl (Zyrtec*) 10 mg PO QPM [facility] Last Admin: 10/29/16 19:17 Dose: 10 mg Clotrimazole (Mycelex Jayme*) 10 mg PO FIVE TIMES DAILY [facility] Last Admin: 10/30/16 15:19 Dose: 10 mg Diphenhydramine HCl (Benadryl Po*) 50 mg PO Q4H PRN PRN Reason: ITCHING Famotidine (Pepcid Tab*) 40 mg PO BEDTIME BEN PRN Reason: Protocol Last Admin: 10/29/16 20:54 Dose: 40 mg Fludrocortisone Acetate (Florinef Tab*) 0.1 mg PO DAILY [facility] Last Admin: 10/30/16 08:26 Dose: 0.1 mg Fluticasone Propionate (Flonase Nasal [place] 50mcg*) 2 spray BOTH NARES BEDTIME [facility] Last Admin: 10/29/16 20:59 Dose: 2 spray Heparin Sodium (Porcine) (Heparin Vial(*)) 5,000 units SUBCUT Q8HR [facility] Last Admin: 10/30/16 15:09 Dose: 5,000 units Heparin Sodium (Porcine) (Heparin Flush Port (Ivad)) 5 ml FLUSH DAILY [facility] PRN Reason: Protocol Hydroxychloroquine Sulfate (Plaquenil Tab*) 200 mg PO BID WITH MEALS [facility] Last Admin: 10/30/16 08:26 Dose: 200 mg Levofloxacin/Dextrose (Levaquin 750 Mg Ivpremix(*)) 750 mg in 150 mls @ 100 mls /hr IVPB Q24H [facility] Last Admin: 10/30/16 15:09 Dose: 100 mls/hr Doxycycline Hyclate 100 mg/ (Sodium Chloride) 250 mls @ 250 mls/hr IVPB Q12H [facility] Last Admin: 10/30/16 08:29 Dose: 250 mls/hr Lorazepam (Ativan Inj*) 0.5 mg IV PUSH Q4H PRN PRN Reason: ANXIETY Last Admin: 10/27/16 13:53 Dose: 0.5 mg Methylprednisolone Sodium Succinate (Solu-Medrol*) 60 mg IV Q12H [facility] Last Admin: 10/30/16 08:28 Dose: 60 mg Montelukast Sodium (Singulair Tab*) 10 mg PO BEDTIME [facility] Last Admin: 10/29/16 20:54 Dose: 10 mg Morphine Sulfate (Morphine Inj (Syringe)*) 2 mg IV Q4H PRN PRN Reason: PAIN Omeprazole (Prilosec Cap*) 40 mg PO DAILY@0730 [facility] Last Admin: 10/30/16 08:05 Dose: 40 mg Ondansetron HCl (Zofran Odt Tab*) 4 mg PO Q4H PRN PRN Reason: NAUSEA Last Admin: 10/26/16 16:25 Dose: 4 mg Polyethylene Glycol/Electrolytes (Miralax*) 17 gm PO BID [facility] Last Admin: 10/30/16 08:49 Dose: Not Given Potassium Chloride (Klor Con Er Tab*) 10 meq PO DAILY WITH MEAL [facility] Last Admin: 10/30/16 08:26 Dose: 10 meq Sumatriptan Succinate (Imitrex Tab*) 100 mg PO DAILY PRN PRN Reason: MIGRAINE HEADACHE Last Admin: 10/25/16 19:11 Dose: 100 mg Tamsulosin HCl (Flomax Cap*) 0.4 mg PO DAILY [facility] Last Admin: 10/30/16 08:26 Dose: 0.4 mg Tiotropium [place] (Spiriva Cap.Inh*) 1 cap INH DAILY [facility] Last Admin: 10/30/16 07:14 Dose: 1 cap Vital Signs 10/30/16 10/30/16 10/30/16 04:02 07:17 07:33 Temperature 97.7 F 97.1 F Pulse Rate 89 88 90 Respiratory 20 16 16 Rate Blood Pressure 119/67 148/82 (mmHg) O2 Sat by Pulse 98 98 98 Oximetry Oxygen Devices in Use Now: Nasal Cannula - at 3 liters Appearance: Pleasant gentleman lying in bed in NAD. Eyes: No Scleral Icterus Ears/Nose/Mouth/Throat: Mucous Membranes Moist Neck: Trachea Midline Respiratory: Symmetrical Chest Expansion and Respiratory Effort, - - BS+ bilaterally with scattered wheeze Cardiovascular: NL Sounds; No Murmurs; No JVD, RRR Neurological: Alert and Oriented x 3, NL Muscle Strength and Tone Lines/Tubes/Other Access: Clean, Dry and Intact Peripheral IV Nutrition: Taking PO's Result Diagrams: 10/29/16 05:45 10/29/16 05:45 Assess/Plan/Problems-Billing Assessment: Mr. Adam is a 50yo M with PMH of severe asthma on home O2, IgG deficiency, GERD, DVT, SLE, CKD, DANIKA on CPAP, who presented to ED with c/o cough and shortness of breath, found to have asthma exacerbation. - Patient Problems (1) Sepsis Comment: - Patient meets sepsis criteria with leukocytosis and tachypnea. - Source is bronchitis. (2) Acute hypoxemic respiratory failure Comment: - Acute on chronic. - Continue supplemental O2, but now requiring only 3 liters NC. (3) Asthma exacerbation Comment: - Secondary to bronchitis. - Continue steroids, Levofloxacin, doxycycline, and bronchodilators. (4) Lactic acidosis Comment: - Trending down. Patient had persistent lactic acidosis on prior admissions. (5) Chest discomfort Comment: - Secondary to asthma exacerbation. - Serial troponins are negative. (6) CKD (chronic kidney disease) Comment: - Renal function at baseline. (7) DVT prophylaxis Comment: - SQ heparin. (8) Full code status Status and Disposition: Inpatient. Anticipate d/c in AM.
[2016-10-30] MEDS: Cetirizine* 10 MG TAB PO SCH (17:43)
[2016-10-30] MEDS: Montelukast Sodium TAB* 10 MG PO SCH (20:26)
[2016-10-30] MEDS: Famotidine TAB* 20 MG PO SCH (20:26)
[2016-10-30] MEDS: Fluticasone NASAL SPRAY 50MCG* 16 gm SPRAY BTL BOTH NARES SCH (20:31)
[2016-10-31] MEDS: Acetaminophen TAB* 325 MG PO PRN (03:51)
[2016-10-31] MEDS: Albuterol/Ipratropium NEB.SOL* Albuterol 2.5 MG/Ipratropium 0.5 MG 3 ML INH SCH ×4 (03:59→19:26)
[2016-10-31] MEDS: Heparin VIAL(*) 5000 UNITS/ML VIAL (FIVE THOUSAND) SUBCUT SCH ×3 (06:08→21:22)
[2016-10-31] MEDS: Clotrimazole TROCHE* 10 MG TROCHE PO SCH ×5 (06:09→21:22)
[2016-10-31] MEDS: Omeprazole CAP* 20 MG PO SCH (07:55)
[2016-10-31] MEDS: Polyethylene Glycol 3350* 17 GM PACKET PO SCH ×2 (08:42→20:40)
[2016-10-31] MEDS: DOXYcycline IV* 100 MG in NS 0.9% 250 ML* 250 ML IVPB SCH (08:59)
[2016-10-31] MEDS: methylPREDNISolone SOD SUCC* 125 MG 2 ML VIAL IV SCH ×2 (09:02→20:41)
[2016-10-31] MEDS: Tamsulosin CAP* 0.4 MG PO SCH (09:02)
[2016-10-31] MEDS: Fludrocortisone Acetate TAB* 0.1 MG PO SCH (09:02)
[2016-10-31] MEDS: Budesonide NEB* 0.5 MG/2 ML NEB.SOLN INH SCH ×2 (09:02→19:26)
[2016-10-31] MEDS: Hydroxychloroquine TAB* 200 MG PO SCH ×2 (09:02→17:33)
[2016-10-31] MEDS: Aspirin EC Low Dose* 81 MG TAB.EC PO SCH (09:02)
[2016-10-31] MEDS: Potassium Chlor TAB* 10 MEQ TAB.ER PO SCH (09:03)
[2016-10-31] MEDS: Tiotropium CAP.INH* CAP.INH/18 MCG INH SCH (09:03)
[2016-10-31] MEDS: LORazepam INJ* 2 MG/ML 1 ML VIAL IV PUSH PRN (09:12)
[2016-10-31] MEDS: Albuterol 2.5 MG/3 ML NEB.SOL* (0.083%) INH PRN (12:34)
--- NOTE | 2016-10-31 13:44 | PN ---
Subjective Date of Service: 10/31/16 Interval History: HOSPITALIST PROGRESS NOTE Patient seen and examined at bedside. Episode of respiratory distress earlier today when his breathing treatment was delayed. Very anxious and scared to go home. Family History: Unchanged from Admission Social History: Unchanged from Admission Past Medical History: Unchanged from Admission Objective Active Medications: Acetaminophen (Tylenol Tab*) 650 mg PO Q4H PRN PRN Reason: PAIN Last Admin: 10/31/16 03:51 Dose: 650 mg Albuterol (Ventolin 2.5 Mg/3 Ml Neb.Ewa*) 2.5 mg INH Q2H PRN PRN Reason: sob/wheezing Last Admin: 10/31/16 12:34 Dose: 2.5 mg Albuterol/Ipratropium (Duoneb (Albuterol 2.5 Mg/Ipratropium 0.5 Mg)) 1 neb INH Q6H [facility] Last Admin: 10/31/16 09:03 Dose: 1 neb Aspirin (Aspirin Ec Low Dose*) 81 mg PO DAILY [facility] Last Admin: 10/31/16 09:02 Dose: 81 mg Benzonatate (Tessalon Cap*) 200 mg PO TID PRN PRN Reason: COUGH Last Admin: 10/26/16 08:26 Dose: 200 mg Budesonide (Pulmicort Neb*) 0.5 mg INH BID [facility] Last Admin: 10/31/16 09:02 Dose: 0.5 mg Cetirizine HCl (Zyrtec*) 10 mg PO QPM [facility] Last Admin: 10/30/16 17:43 Dose: 10 mg Clotrimazole (Mycelex Jayme*) 10 mg PO FIVE TIMES DAILY [facility] Last Admin: 10/31/16 10:49 Dose: 10 mg Diphenhydramine HCl (Benadryl Po*) 50 mg PO Q4H PRN PRN Reason: ITCHING Doxycycline Hyclate (Vibramycin Cap(*)) 100 mg PO BID [facility] Famotidine (Pepcid Tab*) 40 mg PO BEDTIME [facility]EN PRN Reason: Protocol Last Admin: 10/30/16 20:26 Dose: 40 mg Fludrocortisone Acetate (Florinef Tab*) 0.1 mg PO DAILY [facility] Last Admin: 10/31/16 09:02 Dose: 0.1 mg Fluticasone Propionate (Flonase Nasal [place] 50mcg*) 2 spray BOTH NARES BEDTIME [facility] Last Admin: 10/30/16 20:31 Dose: 2 spray Heparin Sodium (Porcine) (Heparin Vial(*)) 5,000 units SUBCUT Q8HR [facility] Last Admin: 10/31/16 06:08 Dose: 5,000 units Heparin Sodium (Porcine) (Heparin Flush Port (Ivad)) 5 ml FLUSH DAILY [facility] PRN Reason: Protocol Last Admin: 10/31/16 09:13 Dose: 5 ml Hydroxychloroquine Sulfate (Plaquenil Tab*) 200 mg PO BID WITH MEALS [facility] Last Admin: 10/31/16 09:02 Dose: 200 mg Levofloxacin/Dextrose (Levaquin 750 Mg Ivpremix(*)) 750 mg in 150 mls @ 100 mls /hr IVPB Q24H [facility] Stop: 10/31/16 16:00 Last Admin: 10/30/16 15:09 Dose: 100 mls/hr Lorazepam (Ativan Inj*) 0.5 mg IV PUSH Q4H PRN PRN Reason: ANXIETY Last Admin: 10/31/16 09:12 Dose: 0.5 mg Methylprednisolone Sodium Succinate (Solu-Medrol*) 60 mg IV Q12H [facility] Last Admin: 10/31/16 09:02 Dose: 60 mg Montelukast Sodium (Singulair Tab*) 10 mg PO BEDTIME [facility] Last Admin: 10/30/16 20:26 Dose: 10 mg Morphine Sulfate (Morphine Inj (Syringe)*) 2 mg IV Q4H PRN PRN Reason: PAIN Last Admin: 10/31/16 09:12 Dose: 2 mg Omeprazole (Prilosec Cap*) 40 mg PO DAILY@0730 [facility] Last Admin: 10/31/16 07:55 Dose: 40 mg Ondansetron HCl (Zofran Odt Tab*) 4 mg PO Q4H PRN PRN Reason: NAUSEA Last Admin: 10/26/16 16:25 Dose: 4 mg Polyethylene Glycol/Electrolytes (Miralax*) 17 gm PO BID [facility] Last Admin: 10/31/16 08:42 Dose: Not Given Potassium Chloride (Klor Con Er Tab*) 10 meq PO DAILY WITH MEAL [facility] Last Admin: 10/31/16 09:03 Dose: 10 meq Sumatriptan Succinate (Imitrex Tab*) 100 mg PO DAILY PRN PRN Reason: MIGRAINE HEADACHE Last Admin: 10/25/16 19:11 Dose: 100 mg Tamsulosin HCl (Flomax Cap*) 0.4 mg PO DAILY [facility] Last Admin: 10/31/16 09:02 Dose: 0.4 mg Tiotropium [place] (Spiriva Cap.Inh*) 1 cap INH DAILY [facility] Last Admin: 10/31/16 09:03 Dose: 1 cap Vital Signs 10/31/16 10/31/16 10/31/16 10:12 11:01 12:36 Temperature 97.7 F Pulse Rate 104 103 Respiratory 17 19 24 Rate Blood Pressure 146/81 (mmHg) O2 Sat by Pulse 96 Oximetry Oxygen Devices in Use Now: Nasal Cannula - at 3 liters Appearance: Very anxious male lying in bed in NAD. Eyes: No Scleral Icterus Ears/Nose/Mouth/Throat: Mucous Membranes Moist Neck: Trachea Midline Respiratory: Symmetrical Chest Expansion and Respiratory Effort, Clear to Auscultation Cardiovascular: RRR - Normal S1 and S2 Abdominal: NL Sounds; No Tenderness; No Distention Extremities: No Edema Neurological: Alert and Oriented x 3, NL Muscle Strength and Tone Result Diagrams: 10/29/16 05:45 10/29/16 05:45 Assess/Plan/Problems-Billing Assessment: Mr. Adam is a 50yo M with PMH of severe asthma on home O2, IgG deficiency, GERD, DVT, SLE, CKD, DANIKA on CPAP, who presented to ED with c/o cough and shortness of breath, found to have asthma exacerbation. - Patient Problems (1) Sepsis Comment: - Patient meets sepsis criteria with leukocytosis and tachypnea. - Source is bronchitis. (2) Acute hypoxemic respiratory failure Comment: - Acute on chronic. - Continue supplemental O2, but now requiring only 3 liters NC. (3) Asthma exacerbation Comment: - Secondary to bronchitis. - Continue steroids, and bronchodilators. - D/c Levofloxacin, and change doxycycline to PO. (4) Chest discomfort Comment: - Secondary to asthma exacerbation. - Serial troponins are negative. (5) CKD (chronic kidney disease) Comment: - Renal function at baseline. (6) DVT prophylaxis Comment: - SQ heparin. (7) Full code status Status and Disposition: Inpatient. Anticipate d/c in AM.
--- NOTE | 2016-10-31 15:04 | PTEDU ---
Patient Name: BOLIVAR SOLER BOLIVAR SOLER selected video: Caring for a Male External Urinary Collecting System to view on 10/31 at 3:03:34 PM [id number]
--- NOTE | 2016-10-31 15:20 | PTEDU ---
Patient Name: BOLIVAR SOLER BOLIVAR SOLER selected video: Continuous Positive Airway Pressure to view on 10/31/2016 at 3:19:40 PM from [id number]
--- NOTE | 2016-10-31 15:32 | PTEDU ---
Patient Name: BOLIVAR SOLER BOLIVAR SOLER selected video: Kidney Stones to view on 10/31/2016 at 3:32:22 PM from [id number]
[2016-10-31] MEDS: Levofloxacin 750 MG IVPREMIX(* 750 MG/150 ML BAG IVPB SCH (16:34)
[2016-10-31] MEDS: Cetirizine* 10 MG TAB PO SCH (17:33)
[2016-10-31] MEDS: Famotidine TAB* 20 MG PO SCH (20:40)
[2016-10-31] MEDS: Montelukast Sodium TAB* 10 MG PO SCH (20:40)
[2016-10-31] MEDS: DOXYcycline CAP(*) 100 MG PO SCH (20:40)
[2016-10-31] MEDS: Fluticasone NASAL SPRAY 50MCG* 16 gm SPRAY BTL BOTH NARES SCH (20:41)
[2016-11-01] MEDS: Albuterol/Ipratropium NEB.SOL* Albuterol 2.5 MG/Ipratropium 0.5 MG 3 ML INH SCH ×3 (03:21→16:44)
[2016-11-01] MEDS: Heparin VIAL(*) 5000 UNITS/ML VIAL (FIVE THOUSAND) SUBCUT SCH ×2 (06:05→13:13)
[2016-11-01] MEDS: Clotrimazole TROCHE* 10 MG TROCHE PO SCH ×4 (06:07→18:13)
[2016-11-01] MEDS: Tiotropium CAP.INH* CAP.INH/18 MCG INH SCH (07:40)
[2016-11-01] MEDS: Budesonide NEB* 0.5 MG/2 ML NEB.SOLN INH SCH (07:40)
[2016-11-01] MEDS: Acetaminophen TAB* 325 MG PO PRN ×2 (07:57→16:51)
[2016-11-01] MEDS: Omeprazole CAP* 20 MG PO SCH (07:57)
[2016-11-01] MEDS: Polyethylene Glycol 3350* 17 GM PACKET PO SCH (09:21)
[2016-11-01] MEDS: Hydroxychloroquine TAB* 200 MG PO SCH ×2 (09:22→16:51)
[2016-11-01] MEDS: Tamsulosin CAP* 0.4 MG PO SCH (09:23)
[2016-11-01] MEDS: Fludrocortisone Acetate TAB* 0.1 MG PO SCH (09:23)
[2016-11-01] MEDS: DOXYcycline CAP(*) 100 MG PO SCH (09:23)
[2016-11-01] MEDS: Aspirin EC Low Dose* 81 MG TAB.EC PO SCH (09:23)
[2016-11-01] MEDS: Potassium Chlor TAB* 10 MEQ TAB.ER PO SCH (09:24)
[2016-11-01] MEDS: methylPREDNISolone SOD SUCC* 125 MG 2 ML VIAL IV SCH (09:24)
[2016-11-01] MEDS: Albuterol 2.5 MG/3 ML NEB.SOL* (0.083%) INH PRN (11:59)
[2016-11-01 16:13] VITALS: BP 132/90
[2016-11-01] MEDS: Cetirizine* 10 MG TAB PO SCH (16:51)
--- NOTE | 2016-11-02 05:41 | DS ---
DISCHARGE SUMMARY: DATE OF ADMISSION: 10/25/16 DATE OF DISCHARGE: 11/01/16 PRIMARY CARE PROVIDER: Michael Cisneros MD PIGS FEET CLEANER: Jill Cam MD DISCHARGE DIAGNOSES: 1. Acute on chronic hypoxemic respiratory failure. 2. Severe asthma exacerbation. 3. Bronchitis. 4. Leukocytosis. 5. Lactic acidosis. 6. Hyponatremia. 7. Sepsis present on admission. SECONDARY DIAGNOSES: 1. Severe asthma on home oxygen. 2. IgG deficiency receiving monthly infusions. 3. Gastroesophageal reflux disease. 4. History of deep vein thrombosis. 5. Systemic lupus erythematosus. 6. Chronic kidney disease stage 3. 7. Obstructive sleep apnea, on CPAP. MEDICATION LIST: 1. Albuterol sulfate 2 puffs inhaled q.4 hours p.r.n. shortness of breath. 2. Albuterol/ipratropium nebulized q.2 hours p.r.n. shortness of breath. 3. Alprazolam 0.5 mg p.o. b.i.d. as needed for anxiety. 4. Aspirin 81 mg p.o. daily. 5. Beclomethasone dipropionate 2 sprays to both nares daily. 6. Benzonatate 200 mg p.o. t.i.d. as needed for cough. 7. Budesonide 2 mL inhaled b.i.d. 8. Clotrimazole isaias 10 mg p.o. 5 times a day. 9. Benadryl 50 mg p.o. q.4 hours p.r.n. allergies. 10. EpiPen 0.3 mg injected once as needed for severe allergies. 11. Florinef 0.1 mg p.o. daily. 12. Advair 230/21 two puffs inhaled b.i.d. 13. Advair 500/50 one puff inhaled b.i.d. 14. Hydroxychloroquine 200 mg p.o. b.i.d. 15. Immunoglobin 37.5 g infusion q.28 days. 16. Levalbuterol 1.25 mg inhaled q.4 hours p.r.n. shortness of breath. 17. Levocetirizine 5 mg p.o. daily. 18. Mometasone furoate 50 mcg nasal at bedtime. 19. Montelukast 10 mg p.o. daily. 20. Omeprazole 40 mg p.o. daily. 21. Ondansetron ODT 4 mg p.o. q.4 hours p.r.n. nausea. 22. MiraLAX 17 g p.o. b.i.d. 23. Potassium chloride 10 mg p.o. daily. 24. Prednisone taper as follows, 40 mg p.o. daily for 4 days then 30 mg for 4 days, 20 mg for 4 days, then back to the usual dose of 10 mg p.o. daily. 25. Probiotic 1 capsule p.o. daily. 26. Ranitidine 300 mg p.o. at bedtime. 27. Sumatriptan 100 mg p.o. daily as needed for migraines. 28. Tamsulosin 0.4 mg p.o. daily. 29. Spiriva 2 capsules inhaled daily. 30. Torsemide 10 mg p.o. Mondays, Wednesdays, Fridays; 20 mg on Sundays, Tuesdays, , Saturdays. 31. Doxycycline 100 mg p.o. b.i.d. for 7 more days and when that is completed, the patient will return to his usual regimen of azithromycin 500 mg p.o. on Mondays, Wednesdays, and Fridays. HOSPITAL COURSE: Mr. Adam is a 50-year-old male with a complex past medical history as stated above that actually was doing pretty well with no admissions for one year and a half, but over [facility], he over exerted himself trying to help around the home and the following day, he felt fatigued and more short of breath than usual. This was followed by wheezing, productive cough with yellow sputum. For more details about his presentation, I refer you to his history and physical. He was admitted under the impression of severe asthma exacerbation secondary to bronchitis. He went to the intensive care unit as initially he was requiring Vapotherm. His chest x-ray showed no active cardiopulmonary disease. He was started on levofloxacin steroids, continued on bronchodilators. He continued to improve, but slowly. The patient is known to me from prior admission and that is usually how he behaves. He developed leukocytosis up to 22,000 and this was thought to be secondary to sepsis. He did meet sepsis criteria with leukocytosis, tachycardia, and tachypnea. Doxycycline was added to Levaquin and he was seen in consultation by Infectious Disease (Dr. Jones) who agreed with that combination as it would provide excellent atypical coverage. The patient continued to improve slowly. He was weaned off Vapotherm and was transferred to the telemetry floor. He feels now that he is 80% to 90% close to his baseline and feels stable for discharge at this point. Of note is that fact that the patient has persistent lactic acidosis despite aggressive hydration, but looking back at his records, I can see that this was an issue during his admission in 2015 also. PHYSICAL EXAMINATION: Vital Signs: Temperature 97.7, heart rate is 80, respiratory rate is 16, oxygen saturation 98% on 3 L, blood pressure is 126/85. General: The patient is a pleasant, middle aged male, sitting up in bed, in no acute disease. CVS: Normal S1, S2. Regular rate and rhythm. Chest: Breath sounds bilaterally with scattered wheeze. Abdomen: Obese, soft, nontender. Bowel sounds are present. Extremities: No edema. Neuro: He is alert and oriented x3. Able to move all 4 extremities. DIET: Regular diet. ACTIVITY: As tolerated. DISPOSITION: To home. STATUS WHILE IN THE HOSPITAL: Inpatient. Please keep in mind this is a summarized version of this patient's prolonged and complex hospital stay. If you need more information, please feel free to call me at [phone] or please obtain the full medical record. TIME SPENT: Approximately 45 minutes were spent to complete this discharge. CC: Dr. Cisneros; Dr. Cam* [id number]/CPS #: [id number] MTDD
== END 2016-11-01 18:20 | disposition home health service (06) | DRG 871 ==
LOC: ED 12:32 → ICU 13:27 → MEDTELE 10-29 14:09
PROVIDERS: ADMIT Hospitalist; ATTEND Internal Medicine
DX: A41.9 Sepsis, unspecified organism (principal); J96.21 Acute and chronic respiratory failure with hypoxia; E87.2 Acidosis; D83.9 Common variable immunodeficiency, unspecified; D80.3 Selective deficiency of immunoglobulin G [IgG] subclasses; M32.9 Systemic lupus erythematosus, unspecified; N18.3 Chronic kidney disease, stage 3 (moderate); E87.1 Hypo-osmolality and hyponatremia; J45.901 Unspecified asthma with (acute) exacerbation; I73.00 Raynaud's syndrome without gangrene; E86.0 Dehydration; K21.9 Gastro-esophageal reflux disease without esophagitis; M19.90 Unspecified osteoarthritis, unspecified site; J44.9 Chronic obstructive pulmonary disease, unspecified; G47.33 Obstructive sleep apnea (adult) (pediatric); G43.909 Migraine, unspecified, not intractable, without status migrainosus; Z82.49 Family history of ischemic heart disease and other diseases of the circulatory system; Z79.82 Long term (current) use of aspirin; Z88.8 Allergy status to other drugs, medicaments and biological substances; Z88.0 Allergy status to penicillin; Z87.01 Personal history of pneumonia (recurrent); Z82.3 Family history of stroke; Z99.81 Dependence on supplemental oxygen; Z86.718 Personal history of other venous thrombosis and embolism
CPT/HCPCS: 36415; 71010; 80048; 80053; 83605; 84145; 84484; 85025; 87040; 87502; 87641; 93005; 94640; 94660; 94760; A9270-GY; J1100; J1642; J1644; J2060; J2270; J2930

== ENCOUNTER 2023-11-05 11:19 | Inpatient (IN) ==
[2023-11-05 11:59] LABS: ABS Basophils 0.1 10^3/uL (0.0-0.1); ABS Lymphocytes 1.3 10^3/uL (1.0-4.8); ABS Monocytes 0.7 10^3/uL (0.0-1.1); ABS Neutrophils 3.6 10^3/uL (1.5-7.6); ABS Nucleated RBC 0.03 10^3/ul; Eosinophil % 0.5 %; Hematocrit 51.2 % (38-53); Hemoglobin 17.9 g/dL (13.2-16.3); Lymphocyte % 23.6 %; Mean Corpuscular Hemoglobin 32.6 pg (27-33); Mean Corpuscular Volume 93.1 fL (80-97); Mean Platelet Volume 8.7 fL (7.5-11.2); Nucleated Red Blood Cells % 0.5 %/100WBC (0.0-0.8); Platelet Count 266 10^3/uL (150-450); Red Cell Distribution Width 15.3 % (12-17); White Blood Count 5.7 10^3/uL (3.6-10.2)
[2023-11-05 12:10] LABS: INR 1.27 (0.83-1.13)
[2023-11-05 13:09] LABS: Albumin 4.1 g/dL (3.2-5.2); Albumin/Globulin Ratio 1.2 (1-3); Calcium 15.3 mg/dL (8.6-10.3); Creatinine, Serum 1.67 mg/dL (0.67-1.17); Globulin 3.4 g/dL (2-4); Potassium 4.5 mmol/L (3.5-5.0); Total Bilirubin 0.5 mg/dL (0.2-1.0); Total Protein 7.5 g/dL (6.4-8.9); eGFR CKD-EPI 46.9 (>60)
[2023-11-05 14:04] LABS: Calcium (PTH Intact) 14.8 mg/dL (8.6-10.3)
[2023-11-05] MEDS: Lactated Ringers 1000 ml BAG 1,000 ML IV ONE (14:36)
[2023-11-05] MEDS: NS 0.9% 1000 ml BAG 1,000 ML IV ONE ×2 (14:36→17:21)
[2023-11-05 14:53] LABS: High Sensitivity Troponin 1 Hr 5 pg/mL (<20)
[2023-11-05 15:22] LABS: TSH Ultra Thyroid Stim Horm 1.96 mcIU/mL (0.34-5.60)
[2023-11-05 15:24] LABS: Free T4 1.25 ng/dL (0.61-1.12)
[2023-11-05] MEDS: Calcitonin (Salmon) INJ 200 UNITS/ML 2 ML VIAL (400 units) IM ONE (16:49)
[2023-11-05] MEDS: Ondansetron 4 mg VIAL 2 MG/ML 2 ml VIAL IV PRN (17:37)
[2023-11-05 17:43] LABS: Urine Appearance Clear; Urine Bacteria Absent /HPF (Absent); Urine Bilirubin Negative (Negative); Urine Blood Negative (Negative); Urine Color Yellow; Urine Glucose Negative (Negative); Urine Ketones Trace (Negative); Urine Nitrite Negative (Negative); Urine Protein 1+ (>=30 mg/dL) (Negative); Urine Red Blood Cell Trace(0-2/hpf) /HPF (0-Trace); Urine Specific Gravity >1.050 (1.002-1.030); Urine Urobilinogen Negative (Negative); Urine White Blood Cell Trace(0-5/hpf) /HPF (0-Trace)
[2023-11-05 18:02] LABS: Albumin/Globulin Ratio 1.3 (1-3); Calcium 10.6 mg/dL (8.6-10.3); Creatinine, Serum 1.18 mg/dL (0.67-1.17); Direct Bilirubin 0.1 mg/dL (0.03-0.18); Globulin 2.4 g/dL (2-4); HDL Cholesterol 42.1 mg/dL; Indirect Bilirubin 0.3 mg/dL (0.3-1.0); Magnesium 1.6 mg/dL (1.9-2.7); Phosphorus 1.9 mg/dL (2.5-5.0); Potassium 3.5 mmol/L (3.5-5.0); Total Bilirubin 0.4 mg/dL (0.2-1.0); Total Protein 5.4 g/dL (6.4-8.9); eGFR CKD-EPI 71.1 (>60)
[2023-11-05] MEDS ORDERED: RIZATRIPTAN 10 MG PO PRN (18:17)
[2023-11-05] MEDS ORDERED: Levalbuterol 1.25MG/0.5ML NEB.SOL INH PRN (18:17)
[2023-11-05 18:24] LABS: Vitamin D Total 25(OH) 13.2 ng/mL (20-50)
[2023-11-05] MEDS ORDERED: Dextrose 50% Syringe 50 ml 25 GM/50 ML SYRINGE IV PUSH PRN (18:36)
[2023-11-05] MEDS: Magnesium Sulfate 2 gm BAG 2 GM/50 ML BAG IVPB ONE (19:14)
[2023-11-05] MEDS: NS 0.9% 1000 ml BAG 1,000 ML IV SCH (19:14)
[2023-11-05] MEDS: Potassium Phosphate IV 10 MMOL in NS 0.9% 250 ml 250 ML IVPB ONE (21:07)
[2023-11-05] MEDS: Polyethylene Glycol 3350 17 GM PACKET PO SCH (23:58)
[2023-11-05] MEDS: Iodixanol (CONTRAST) 320 MG/ML 100 ML SDV IV ONE (23:58)
[2023-11-05] MEDS: Nystatin SUSPENSION 100,000 UNITS/ML UDC SWISH SWAL SCH (23:59)
[2023-11-06] MEDS: Dextran 70/Hypromellose Tears Eye Drops 15 ml BTL (for Artificials Tears) BOTH EYES SCH
[2023-11-06 01:08] LABS: Anion Gap 13 mmol/L (2-16); Blood Urea Nitrogen 10 mg/dL (6-24); CO2 Carbon Dioxide 22 mmol/L (22-32); Calcium 12.4 mg/dL (8.6-10.3); Chloride 99 mmol/L (101-111); Creatinine, Serum 1.47 mg/dL (0.67-1.17); Glucose 149 mg/dL (70-100); Magnesium 2.4 mg/dL (1.9-2.7); Sodium 134 mmol/L (135-145); eGFR CKD-EPI 54.6 (>60)
[2023-11-06 02:24] LABS: Phosphorus 1.8 mg/dL (2.5-5.0); Potassium Redraw 4.7 mmol/L (3.5-5.0)
[2023-11-06 04:44] LABS: Magnesium 2.3 mg/dL (1.9-2.7)
[2023-11-06] MEDS: Sodium Phosphate IV 15 MMOL in NS 0.9% 250 ml 250 ML IV ONE (05:58)
[2023-11-06 06:33] LABS: ABS Lymphocytes 0.9 10^3/uL (1.0-4.8); ABS Monocytes 0.6 10^3/uL (0.0-1.1); ABS Neutrophils 3.4 10^3/uL (1.5-7.6); ABS Nucleated RBC 0.01 10^3/ul; Eosinophil % 0.4 %; Hematocrit 45.5 % (38-53); Hemoglobin 15.7 g/dL (13.2-16.3); Lymphocyte % 18.6 %; Mean Corpuscular Hgb Conc 34.5 g/dL (31-36); Mean Corpuscular Volume 92.7 fL (80-97); Mean Platelet Volume 9.1 fL (7.5-11.2); Nucleated Red Blood Cells % 0.1 %/100WBC (0.0-0.8); Platelet Count 225 10^3/uL (150-450); Red Blood Count 4.91 10^6/uL (4.06-5.63); Red Cell Distribution Width 15.5 % (12-17)
[2023-11-06] MEDS ORDERED: Budesonide NEB 0.5 MG/2 ML NEB.SOLN INH PRN (07:00)
[2023-11-06] MEDS: SPIRIVA Respimat (tiotropium) 2.5 mcg/inh Inhaler INH SCH (09:05)
[2023-11-06 10:43] LABS: Calcium 12.1 mg/dL (8.6-10.3); Creatinine, Serum 1.36 mg/dL (0.67-1.17); Magnesium 2.1 mg/dL (1.9-2.7); Phosphorus 1.7 mg/dL (2.5-5.0); Potassium 4.1 mmol/L (3.5-5.0); eGFR CKD-EPI 59.9 (>60)
[2023-11-06] MEDS: Potassium Phosphate IV 5 MMOL in NS 0.9% 250 ml 250 ML IVPB ONE (12:45)
[2023-11-06 13:23] LABS: Albumin 3.7 g/dL (3.2-5.2); Albumin/Globulin Ratio 1.2 (1-3); Calcium 11.8 mg/dL (8.6-10.3); Creatinine, Serum 1.26 mg/dL (0.67-1.17); Phosphorus 2.4 mg/dL (2.5-5.0); Potassium 4.3 mmol/L (3.5-5.0); Total Bilirubin 0.4 mg/dL (0.2-1.0); Total Protein 6.7 g/dL (6.4-8.9); eGFR CKD-EPI 65.7 (>60)
[2023-11-06] MEDS: Calcitonin (Salmon) INJ 200 UNITS/ML 2 ML VIAL (400 units) IM SCH (16:27)
[2023-11-06 18:49] LABS: Calcium 11.7 mg/dL (8.6-10.3); Creatinine, Serum 1.23 mg/dL (0.67-1.17); Potassium 4.4 mmol/L (3.5-5.0); eGFR CKD-EPI 67.6 (>60)
[2023-11-07 07:16] LABS: ABS Basophils 0.1 10^3/uL (0.0-0.1); ABS Lymphocytes 1.1 10^3/uL (1.0-4.8); ABS Monocytes 0.6 10^3/uL (0.0-1.1); ABS Neutrophils 3.3 10^3/uL (1.5-7.6); ABS Nucleated RBC 0.01 10^3/ul; Eosinophil % 0.7 %; Hematocrit 45.8 % (38-53); Hemoglobin 15.9 g/dL (13.2-16.3); Lymphocyte % 21.8 %; Mean Corpuscular Hemoglobin 32.1 pg (27-33); Mean Corpuscular Hgb Conc 34.6 g/dL (31-36); Mean Corpuscular Volume 92.8 fL (80-97); Mean Platelet Volume 9.1 fL (7.5-11.2); Nucleated Red Blood Cells % 0.1 %/100WBC (0.0-0.8); Platelet Count 222 10^3/uL (150-450); Red Blood Count 4.94 10^6/uL (4.06-5.63); Red Cell Distribution Width 15.4 % (12-17); White Blood Count 5.1 10^3/uL (3.6-10.2)
[2023-11-07 07:57] LABS: Anion Gap 10 mmol/L (2-16); Blood Urea Nitrogen 6 mg/dL (6-24); CO2 Carbon Dioxide 24 mmol/L (22-32); Calcium 11.5 mg/dL (8.6-10.3); Chloride 102 mmol/L (101-111); Creatinine, Serum 1.21 mg/dL (0.67-1.17); Glucose 120 mg/dL (70-100); Magnesium 1.9 mg/dL (1.9-2.7); Phosphorus 2.1 mg/dL (2.5-5.0); Potassium 4.2 mmol/L (3.5-5.0); Sodium 136 mmol/L (135-145)
[2023-11-07] MEDS: Iohexol 300 (CONTRAST) 10 ML SDV IV ONE (07:58)
[2023-11-07] MEDS: Sodium Phosphate IV 15 MMOL in NS 0.9% 250 ml 250 ML IV ONE (11:12)
[2023-11-08 07:54] LABS: Calcium 11.9 mg/dL (8.6-10.3); Creatinine, Serum 1.25 mg/dL (0.67-1.17); Magnesium 1.8 mg/dL (1.9-2.7); Phosphorus 2.8 mg/dL (2.5-5.0); Potassium 4.1 mmol/L (3.5-5.0); eGFR CKD-EPI 66.3 (>60)
[2023-11-08 08:39] LABS: Rapid COVID-19 Molecular Undetected (Undetected)
[2023-11-08] MEDS: Cosyntropin 0.25 MG VIAL IV ONE (09:21)
[2023-11-08] MEDS: Magnesium Sulfate 2 gm BAG 2 GM/50 ML BAG IVPB ONE (09:31)
[2023-11-08 17:30] LABS: Anion Gap 9 mmol/L (2-16); Blood Urea Nitrogen 8 mg/dL (6-24); CO2 Carbon Dioxide 23 mmol/L (22-32); Calcium 12.8 mg/dL (8.6-10.3); Chloride 102 mmol/L (101-111); Creatinine, Serum 1.37 mg/dL (0.67-1.17); Glucose 125 mg/dL (70-100); Sodium 134 mmol/L (135-145); eGFR CKD-EPI 59.4 (>60)
[2023-11-08] MEDS: Hydrocortisone INJ 100 MG/2ML 2 ML VIAL IV SCH (17:30)
[2023-11-08] MEDS: NS 0.9% 1000 ml BAG 1,000 ML IV SCH ×2 (17:49→19:54)
[2023-11-08] MEDS: Hydrocortisone INJ 100 MG/2ML 2 ML VIAL IV ONE (17:58)
[2023-11-08] MEDS: Gadoteridol (CONTRAST) 279.3 MG/ML 10 ML IV ONE (21:48)
[2023-11-08 22:39] LABS: Creatinine, Serum 1.45 mg/dL (0.67-1.17); Potassium 4.2 mmol/L (3.5-5.0); eGFR CKD-EPI 55.5 (>60)
[2023-11-09 04:55] LABS: Calcium 10.7 mg/dL (8.6-10.3); Creatinine, Serum 1.25 mg/dL (0.67-1.17); Potassium 3.9 mmol/L (3.5-5.0); eGFR CKD-EPI 66.3 (>60)
[2023-11-09] MEDS: Hydrocortisone INJ 100 MG/2ML 2 ML VIAL IV SCH (06:40)
[2023-11-09 07:10] LABS: Magnesium 1.7 mg/dL (1.9-2.7); Phosphorus 2.4 mg/dL (2.5-5.0)
[2023-11-09] MEDS: Magnesium Sulfate 2 gm BAG 2 GM/50 ML BAG IVPB ONE (08:22)
[2023-11-09 10:07] VITALS: BP 113/85
[2023-11-09] MEDS: Potassium & Sodium Phos 250 mg = 1 PACKET PO SCH (10:54)
[2023-11-09 13:32] LABS: Calcium 10.8 mg/dL (8.6-10.3); Creatinine, Serum 1.27 mg/dL (0.67-1.17); Potassium 3.8 mmol/L (3.5-5.0); eGFR CKD-EPI 65.1 (>60)
== END 2023-11-09 11:15 | DRG 644 ==
LOC: ED 11:19 → EDHOLD 11:19 → SUATTDRO 15:22 → MEDTELE 20:56 → SUATTDRO 11-07 11:36
PROVIDERS: ADMIT Internal Medicine; ATTEND Student in an Organized Health Care Education/Training Program